=== PATIENT | male | born 1940 | race American Indian/Alaskan Native ===

== ENCOUNTER 2017-08-27 09:42 | Outpatient (CLI) | payer MEDICARE, OTHER ==
--- NOTE | 2017-08-27 12:29 | Cat Scan Report ---
FINAL REPORT EXAM: CT ANGIO CHEST HISTORY: CHEST PAIN COMPARISON: None. TECHNIQUE: Multiple contiguous axial images were obtained from the thoracic inlet to upper abdomen after administration of IV contrast. Reformatted sagittal and coronal images were available for review. FINDINGS: Medical devices: None. Thyroid: Normal. Lymph nodes: No significant mediastinal, hilar, or axillary lymphadenopathy. There is some residual thymic tissue anterior to the aorta. Vasculature: Normal caliber of the thoracic aorta without evidence of aneurysm or dissection. Normal variant branching pattern of the aortic arch with a common origin between the left common carotid artery and right brachiocephalic artery. The contrast bolus is suboptimal for evaluation of the pulmonary artery. There is no central pulmonary embolus. Heart: Normal heart size. Moderate coronary artery calcifications, most prominent in the left anterior descending artery. Other mediastinal structures: Normal. Lung parenchyma: Minimal dependent atelectasis at the lung bases. No suspicious nodule or mass. Airways: Patent. No bronchiectasis. Pleura: No pleural effusion or pneumothorax. Chest wall and spine: No suspicious osseous lesions. No acute fracture or dislocation. Upper Abdomen: Questionable filling defect versus most likely artifact from timing of the contrast bolus in the main portal vein. Simple appearing 2.5 centimeter cyst in the superior pole of the left kidney. Atrophic right kidney. Multiple nonobstructive renal calculi. Partially visualized 1 centimeter calculus in the right renal pelvis. IMPRESSION: 1. No evidence of thoracic aortic dissection or aneurysm. 2. Contrast bolus is suboptimal for evaluation of the pulmonary arteries, however there is no central pulmonary embolus. 3. Moderate coronary artery calcifications, most prominent in the left anterior descending artery. 4. Likely mixing artifact versus less likely thrombus in the main portal vein. Recommend further evaluation with ultrasound. 5. Atrophic right kidney and partially visualized calculus in the renal pelvis. 6. Additional nonobstructive renal calculi bilaterally. 7. Simple appearing cyst of the left kidney.
== END 2017-08-27 09:43 | disposition home or self-care (01) ==
LOC: CT 09:42
PROVIDERS: ATTEND Internal Medicine Cardiovascular Disease
DX: I25.10 Atherosclerotic heart disease of native coronary artery without angina pectoris (principal); N20.0 Calculus of kidney; N28.1 Cyst of kidney, acquired; J98.11 Atelectasis; N26.1 Atrophy of kidney (terminal); I10 Essential (primary) hypertension; Z87.891 Personal history of nicotine dependence
CPT/HCPCS: 36415; 71275; 82565; 84520; Q9966

== ENCOUNTER 2017-09-10 09:46 | Observation (INO) | payer MEDICARE, OTHER ==
[2017-09-10] MEDS ORDERED: NACL 0.9% 1 ML, VANCOMYCIN VIAL 1,000 MG IR ONE (10:35)
[2017-09-10] MEDS ORDERED: NACL 0.45% 1000 ML 1,000 ML IV SCH (11:00)
[2017-09-10 11:07] LABS: Basophils % (Auto) 0.7 % (0.0-1.8); Eosinophils # (Auto) 0.1 K/mm3 (0.0-0.4); Eosinophils % (Auto) 1.4 % (0.0-4.3); Hematocrit 42.2 % (35.5-45.6); Hemoglobin 14.4 gm/dl (11.8-15.2); Lymphocytes # (Auto) 1.2 K/mm3 (1.2-5.4); Lymphocytes % (Auto) 24.4 % (13.4-35.0); Mean Corpuscular HGB Conc 34 % (32-34); Mean Corpuscular Hemoglobin 30 pg (28-32); Mean Corpuscular Volume 87 fl (84-94); Monocytes # (Auto) 0.4 K/mm3 (0.0-0.8); Monocytes % (Auto) 7.8 % (0.0-7.3); Platelet Count 175 K/mm3 (140-440); Red Blood Count 4.87 M/mm3 (3.65-5.03); Red Cell Distribution Width 15.6 % (13.2-15.2)
[2017-09-10] MEDS ORDERED: NACL 0.9% 500 ML IR ONE (11:07)
[2017-09-10] MEDS ORDERED: ANCEF/STERILE WATER 2 GM/20 ML 0 GM/0 ML SYRINGE IV ONE (11:08)
[2017-09-10] MEDS ORDERED: MARCAINE 0.5% 60 ML INFILTRATI ONE (11:08)
[2017-09-10] MEDS ORDERED: XYLOCAINE 1% 20 mL ONE (11:08)
[2017-09-10] MEDS ORDERED: NACL 0.9% 500 ML 0 ML ONE (11:11)
[2017-09-10 11:15] LABS: INR 0.95 (0.87-1.13)
[2017-09-10 11:18] LABS: Calcium 9.6 mg/dL (8.4-10.2)
[2017-09-10] MEDS: VANCOMYCIN/NS 1 GM/250 ML 1 GM/250 ML BAG IV NR ×2 (11:18→12:10)
[2017-09-10] MEDS: VERSED IV ONE ×4 (12:06→12:47)
[2017-09-10] MEDS: SUBLIMAZE ONE ×3 (12:06→12:19)
[2017-09-10] MEDS ORDERED: NACL 0.9% 1000 ML 0 ML ONE (12:38)
[2017-09-10] MEDS ORDERED: VANCOMYCIN VIAL 1,000 MG in NACL 0.9% 1,000 ML IRRIGATION ONE (12:50)
[2017-09-10] MEDS ORDERED: NACL 0.9% 500 ML 500 ML ONE (12:58)
[2017-09-10] MEDS ORDERED: NORCO 5/325 ONE (14:09)
[2017-09-10] MEDS: NORCO 5/325 PO PRN (14:14)
--- NOTE | 2017-09-10 14:48 | XRay Report ---
AP CHEST: HISTORY: Pacemaker postop A 2-lead pacemaker device has been inserted since 08/15/17. There is no evidence for pneumothorax. The lungs are clear. Heart size is normal. No acute process is noted. IMPRESSION: Pacemaker placement. No pneumothorax.
[2017-09-11] MEDS: NORCO 5/325 PO PRN (00:09)
[2017-09-11] MEDS ORDERED: VANCOMYCIN/NS 1 GM/250 ML 1 GM/250 ML BAG IV SCH (00:30)
[2017-09-11 06:01] VITALS: BP 169/98
--- NOTE | 2017-09-11 11:53 | Short Stay Summary ---
Short Stay Documentation Date of service: 09/11/17 - History H&P: obtained from office - Allergies and Medications Current Medications: Allergies cefazolin sodium [From [facility]] Allergy (Verified 08/15/17 17:09) Itching Home Medications Medication Instructions Recorded Confirmed Last Taken Type Aspirin [Aspir-Low] 81 mg PO DAILY 08/15/17 09/10/17 09/09/17 History 10mg Terazosin HCl 10 mg PO QHS 08/15/17 09/10/17 09/09/17 History 10mg Active Medications Acetaminophen/Hydrocodone Bitart ([place] 5/325) 1 each PO Q6H PRN PRN Reason: Pain, Moderate (4-6) Last Admin: 09/11/17 00:09 Dose: 1 each Sodium Chloride (Nacl 0.45% 1000 Ml) 1,000 mls @ 50 mls/hr IV DIRECT YELENA Last Admin: 09/10/17 11:18 Dose: 50 mls/hr Pneumococcal Polyvalent Vaccine (Pneumovax 23) 0.5 ml IM .ONCE ONE Stop: 09/11/17 12:01 - Brief post op/procedure progress note Date of procedure: 09/10/17 Pre-op diagnosis: symptomatic bradycardia Post-op diagnosis: same Procedure: PPM implantation - see operative report Anesthesia: local Estimated blood loss: none Condition: stable - Disposition Condition at discharge: Stable Disposition: DC-[id number] TO HOME OR SELFCARE - Discharge Diagnoses (1) Symptomatic bradycardia Status: Chronic (2) Cardiac pacemaker in situ Status: Chronic (3) Junctional rhythm Status: Resolved (4) Hypertension Status: Chronic Short Stay Discharge Plan Activity: advance as tolerated Diet: low fat, low salt Wound: keep clean and dry, other (as per discharge instructions) Follow up with: GARDENIA VALDEZ MD [Primary Care Provider] - 7 Days ARMANI PORTILLO MD [Staff Physician] - 7 Days (09/23/2017 @ 1:30PM in our [place] office)
[2017-09-11] MEDS ORDERED: PNEUMOVAX 23 IM ONE (12:00)
== END 2017-09-11 15:28 | disposition home or self-care (01) ==
LOC: CATHLABREC 09:46 → 4A 11:23
PROVIDERS: ADMIT Internal Medicine Cardiovascular Disease; ATTEND Internal Medicine Cardiovascular Disease
DX: I49.5 Sick sinus syndrome (principal); R00.1 Bradycardia, unspecified; I10 Essential (primary) hypertension
CPT/HCPCS: 33208; 36415; 71045; 80048; 82962; 85025; 85610; 85730; 93005; 93010; 96365; 96366; 96375; C1779; C1785; C1892; G0378; J2250; J3010; J3370; J7040; 90732; J0690; J7030; Q9967

== ENCOUNTER 2017-09-21 21:19 | Inpatient (IN) | payer MEDICARE, OTHER ==
[2017-09-21] MEDS ORDERED: NACL 0.9% 500 ML 500 ML IV ONE (21:54)
[2017-09-21 22:22] LABS: Hematocrit 40.1 % (35.5-45.6); Hemoglobin 13.3 gm/dl (11.8-15.2); Mean Corpuscular HGB Conc 33 % (32-34); Mean Corpuscular Hemoglobin 29 pg (28-32); Mean Corpuscular Volume 87 fl (84-94); Platelet Count 176 K/mm3 (140-440); Red Blood Count 4.63 M/mm3 (3.65-5.03); Red Cell Distribution Width 15.2 % (13.2-15.2)
[2017-09-21 22:33] LABS: INR 1.1 (0.87-1.13)
--- NOTE | 2017-09-21 22:40 | XRay Report ---
FINAL REPORT EXAM: XR CHEST 1V AP HISTORY: possible Sepsis COMPARISON: August 2017. FINDINGS: Frontal view(s) of the chest obtained. Cardiac silhouette within normal limits. No gross consolidation or effusion. No pneumothorax. Left-sided cardiac pacer is in place. IMPRESSION: No grossly acute findings.
[2017-09-21 22:46] LABS: Albumin 3.7 g/dL (3.9-5)
[2017-09-21] MEDS ORDERED: TYLENOL ONE (22:49)
[2017-09-21] MEDS ORDERED: TYLENOL PO ONE (22:55)
--- NOTE | 2017-09-21 23:34 | Emergency Department Report ---
HPI - General Chief Complaint: Weakness Time Seen by Provider: 09/21/17 22:49 - HPI HPI: Room 1 The patient is a 76-year-old male presenting with a chief complaint of fever and weakness. The patient states she had a renal stent removed 09/17/[address]. Albarran. The patient states the following evening he feels as though he had a subjective fever. 09/19 he states he began to feel weakness and off balance. The patient states he started developing bilateral testicular pain with the left greater than the right. The patient also states he developed dysuria at that time. 09/20 the patient reported a temperature of 101.3F. Today the patient stated his weakness worsened. The patient states after he went to the bathroom he felt so weak he had difficulty getting back to his bedroom. The patient finally made to his bed and his found him hanging off the side of the secondary to his profound weakness. At this time EMS was called. In the ED the patient received IV fluids and states he feels much improved the patient admitted to some nausea earlier but denies vomiting. The patient states she had lower abdominal pain which began 09/19 as well Location: [See above] Duration: [See above] Quality: Weakness, pain Severity: Moderate Modifying factors: [see above] Context: [see above] Mode of transportation: [not driving] ED Past Medical Hx - Past Medical History Previous Medical History?: Yes Hx Hypertension: Yes Hx Diabetes: Yes Additional medical history: Pacemaker, Kidney stones, Recently had stent in Kidney removed - Surgical History Past Surgical History?: Yes Additional Surgical History: Renal stents, lithotripsy, Pacemaker - Family History Family history: no significant - Social History Smoking Status: Former Smoker (none 45 years) Substance Use Type: None (denies illicit drug use) - Medications Home Medications: Home Medications Medication Instructions Recorded Confirmed Last Taken Type Aspirin [Aspir-Low] 81 mg PO DAILY 08/15/17 09/21/17 09/09/17 History 10mg Benazepril (Nf) 20 mg PO DAILY 09/21/17 09/21/17 Unknown History Ciprofloxacin HCl [Cipro] 500 mg PO BID 09/21/17 09/21/17 Unknown History Ibuprofen 200 mg PO Q6H PRN 09/21/17 09/21/17 Unknown History Nebivolol HCl [Bystolic] 10 mg PO DAILY 09/21/17 09/21/17 Unknown History Oxycodone HCl/Acetaminophen 1 each PO Q4H PRN 09/21/17 09/21/17 Unknown History [Percocet 7.5/325 mg] Tamsulosin [Flomax] 0.4 mg PO QDAY 09/21/17 09/21/17 Unknown History ED Review of Systems ROS: Stated complaint: GENERAL WEAKNESS,FEVER Other details as noted in HPI Constitutional: fever, weakness Gastrointestinal: abdominal pain, nausea. denies: vomiting Genitourinary: dysuria Musculoskeletal: back pain Physical Exam - Physical Exam Vital Signs: Vital Signs 09/21/17 09/21/17 09/21/17 21:36 22:38 22:56 Temperature 102.4 F H Pulse Rate 84 Respiratory 20 20 20 Rate Blood Pressure 153/76 O2 Sat by Pulse 98 98 Oximetry Physical Exam: GENERAL: The patient is well-developed well-nourished male lying on stretcher not appearing to be in acute distress. [] HEENT: Normocephalic. Atraumatic. Extraocular motions are intact. Patient has moist mucous membranes. NECK: Supple. Trachea midline CHEST/LUNGS: Clear to auscultation. There is no respiratory distress noted. HEART/CARDIOVASCULAR: Regular. There is no tachycardia. There is no gallop rub or murmur. ABDOMEN: Abdomen is soft, with tenderness to palpation in the suprapubic and left lower quadrant. Patient has normal bowel sounds. There is no abdominal distention. SKIN: There is no rash. There is no edema. There is no diaphoresis. NEURO: The patient is awake, alert, and oriented. The patient is cooperative. The patient has normal speech MUSCULOSKELETAL: There is no CVA tenderness. There is no evidence of acute injury. GENITOURINARY: Both testicles are tender to palpation. No appreciable edema ED Course Vital Signs 09/21/17 09/21/17 09/21/17 21:36 22:38 22:56 Temperature 102.4 F H Pulse Rate 84 Respiratory 20 20 20 Rate Blood Pressure 153/76 O2 Sat by Pulse 98 98 Oximetry ED Medical Decision Making - Lab Data Result diagrams: 09/21/17 22:03 09/21/17 22:03 Laboratory Tests 09/21/17 09/21/17 09/21/17 22:03 22:03 22:03 WBC 15.0 H RBC 4.63 Hgb 13.3 Hct 40.1 MCV 87 MCH 29 MCHC 33 RDW 15.2 Plt Count 176 Add Manual Diff Complete Total Counted 100 Seg Neutrophils % Bobbin Winder Seg Neuts % (Manual) 90.0 H Band Neutrophils % 5.0 Lymphocytes % (Manual) 3.0 L Reactive Lymphs % (Man) 0 Monocytes % (Manual) 2.0 Eosinophils % (Manual) 0 Basophils % (Manual) 0 Metamyelocytes % 0 Myelocytes % 0 Promyelocytes % 0 Blast Cells % 0 Nucleated RBC % Not Reportable Seg Neutrophils # Man 13.5 H Band Neutrophils # 0.8 Lymphocytes # (Manual) 0.5 L Abs React Lymphs (Man) 0.0 Monocytes # (Manual) 0.3 Eosinophils # (Manual) 0.0 Basophils # (Manual) 0.0 Metamyelocytes # 0.0 Myelocytes # 0.0 Promyelocytes # 0.0 Blast Cells # 0.0 WBC Morphology Not Reportable Hypersegmented Neuts Not Reportable Hyposegmented Neuts Not Reportable Hypogranular Neuts Not Reportable Smudge Cells Not Reportable Toxic Granulation Not Reportable Toxic Vacuolation Not Reportable Dohle Bodies Not Reportable Pelger-Huet Anomaly Not Reportable Michelle Rods Not Reportable Platelet Estimate Consistent w auto Clumped Platelets Not Reportable Plt Clumps, EDTA Not Reportable Large Platelets Not Reportable Giant Platelets Not Reportable Platelet Satelliting Not Reportable Plt Morphology Comment Not Reportable RBC Morphology Normal Dimorphic RBCs Not Reportable Polychromasia Not Reportable Hypochromasia Not Reportable Poikilocytosis Not Reportable Anisocytosis Not Reportable Microcytosis Not Reportable Macrocytosis Not Reportable Spherocytes Not Reportable Pappenheimer Bodies Not Reportable Sickle Cells Not Reportable Target Cells Not Reportable Tear Drop Cells Not Reportable Ovalocytes Not Reportable Helmet Cells Not Reportable [place] Bodies Not Reportable Cando Rings Not Reportable [place] Cells Not Reportable Bite Cells Not Reportable Crenated Cell Not Reportable Elliptocytes Not Reportable Acanthocytes (Spur) Not Reportable Rouleaux Not Reportable Hemoglobin C Crystals Not Reportable Schistocytes Not Reportable Malaria parasites Not Reportable Meng Bodies Not Reportable Hem Pathologist Commnt No PT 14.8 INR 1.10 VBG pH Sodium 135 L Potassium 4.1 Chloride 98.3 Carbon Dioxide 19 L Anion Gap 22 BUN 22 H Creatinine 2.0 H Estimated GFR 40 BUN/Creatinine Ratio 11 Glucose 155 H Lactic Acid Calcium 9.0 Total Bilirubin 0.70 AST 20 ALT 12 Alkaline Phosphatase 59 Total Protein 7.3 Albumin 3.7 L Albumin/Globulin Ratio 1.0 Urine Color Urine Turbidity Urine pH Ur Specific [place] Urine Protein Urine Glucose (UA) Urine Ketones Urine Blood Urine Nitrite Urine Bilirubin Urine Urobilinogen Ur Leukocyte Esterase Urine WBC (Auto) Urine RBC (Auto) 09/21/17 09/21/17 09/21/17 22:03 22:03 23:33 WBC RBC Hgb Hct MCV MCH MCHC RDW Plt Count Add Manual Diff Total Counted Seg Neutrophils % Seg Neuts % (Manual) Band Neutrophils % Lymphocytes % (Manual) Reactive Lymphs % (Man) Monocytes % (Manual) Eosinophils % (Manual) Basophils % (Manual) Metamyelocytes % Myelocytes % Promyelocytes % Blast Cells % Nucleated RBC % Seg Neutrophils # Man Band Neutrophils # Lymphocytes # (Manual) Abs React Lymphs (Man) Monocytes # (Manual) Eosinophils # (Manual) Basophils # (Manual) Metamyelocytes # Myelocytes # Promyelocytes # Blast Cells # WBC Morphology Hypersegmented Neuts Hyposegmented Neuts Hypogranular Neuts Smudge Cells Toxic Granulation Toxic Vacuolation Dohle Bodies Pelger-Huet Anomaly Michelle Rods Platelet Estimate Clumped Platelets Plt Clumps, EDTA Large Platelets Giant Platelets Platelet Satelliting Plt Morphology Comment RBC Morphology Dimorphic RBCs Polychromasia Hypochromasia Poikilocytosis Anisocytosis Microcytosis Macrocytosis Spherocytes Pappenheimer Bodies Sickle Cells Target Cells Tear Drop Cells Ovalocytes Helmet Cells [place] Bodies Cando Rings Armaan Cells Bite Cells Crenated Cell Elliptocytes Acanthocytes (Spur) Rouleaux Hemoglobin C Crystals Schistocytes Malaria parasites Meng Bodies Hem Pathologist Commnt PT INR VBG pH 7.377 Sodium Potassium Chloride Carbon Dioxide Anion Gap BUN Creatinine Estimated GFR BUN/Creatinine Ratio Glucose Lactic Acid 1.10 Calcium Total Bilirubin AST ALT Alkaline Phosphatase Total Protein Albumin Albumin/Globulin Ratio Urine Color Yellow Urine Turbidity Clear Urine pH 6.0 Ur Specific [place] 1.012 Urine Protein 30 mg/dl Urine Glucose (UA) 50 Urine Ketones Tr Urine Blood Sm Urine Nitrite Neg Urine Bilirubin Neg Urine Urobilinogen < 2.0 Ur Leukocyte Esterase Sm Urine WBC (Auto) 15.0 H Urine RBC (Auto) 3.0 - EKG Data -: EKG Interpreted by Me EKG shows normal: sinus rhythm Rate: normal - EKG Data When compared to previous EKG there are: previous EKG unavailable Interpretation: other (no ischemic changes seen) - Radiology Data Radiology results: report reviewed (testicular ultrasound, CT abdomen and pelvis , chest x-ray), image reviewed (testicular ultrasound, CT abdomen and pelvis, chest x-ray) interpreted by me: Chest x-ray- no focal infiltrate, no pneumothorax [address] [address] Ultrasound Report Signed Patient: DIONNE GARCIA MR#: [id number] : 1940 Acct:[id number] Age/Sex: 76 / M ADM Date: 09/21/17 Loc: ED Attending Dr: Ordering Physician: ILA JEFF MD Date of Service: 09/21/17 Procedure(s): US testicular doppler comp Accession Number(s): [id number] cc: ILA JEFF MD FINAL REPORT EXAM: US TESTICULAR DOPPLER COMP HISTORY: bilateral testicle pain, left greater than right COMPARISON: None available. TECHNIQUE: Several real-time grayscale and color Doppler images were obtained. FINDINGS: The right testicle measures 4.3 x 2.2 x 3.1 centimeters. Left testicle measures 4.5 x 1.7 x 2.5 centimeters. There is vascular flow to the bilateral testicles. Both the left and right epididymis are heterogeneous in echogenicity with increased vascularity concerning for bilateral epididymitis. No large hydrocele or varicocele demonstrated. IMPRESSION: Findings concerning for bilateral epididymitis. Transcribed By: LMA Dictated By: PHI LIEBERMAN MD Electronically Authenticated By: PHI LIEBERMAN MD Signed Date/Time: 09/22/175 DD/ TD/TT: 09/22/[address] [address] Cat Scan Report Signed Patient: DIONNE GARCIA MR#: [id number] : 1940 Acct:[id number] Age/Sex: 76 / M ADM Date: 09/21/17 Loc: ED Attending Dr: Ordering Physician: ILA JEFF MD Date of Service: 09/21/17 Procedure(s): CT abdomen pelvis wo con Accession Number(s): [id number] cc: ILA JEFF MD FINAL REPORT EXAM: CT ABDOMEN PELVIS WO CON HISTORY: suprapubic LLQ Abd pain, fever COMPARISON: None available. TECHNIQUE: Contiguous axial images were obtained. Additional sagittal and coronal reformatted images were obtained. FINDINGS: Mild linear atelectasis and scarring at the lung bases. Visualized heart is upper limits normal in size. No calcified gallstones. Hypodense lesion within left hepatic lobe measuring 5-6 millimeters. This is too small to accurately characterize but may reflect a tiny cyst. Otherwise, liver, spleen, pancreas are grossly unremarkable. Nodular thickening of the adrenal glands. Multiple bilateral nonobstructive renal calculi. Chronic appearing atrophy of the right kidney compared to the left. Right kidney measures 8.1 centimeters in length. The left kidney measures 11.5 centimeters in length. Benign bilateral renal cysts. Aorta and IVC normal in caliber. Mild to moderate calcified plaque along the aorta. At the posterior right margin the urinary bladder is a 3 x 3 millimeter calculus. This is separate from the UVJ. No associated dilatation right ureter to suggest recent passage of calculus. Moderate enlargement of prostate gland measuring 5.3 x 5.4 centimeters in axial dimension and 5.3 centimeters in craniocaudal dimension. Mild haziness of the fat surrounding the prostate gland. The appendix is normal in caliber. Diverticulosis of the colon. No diverticulitis. Moderate severe degenerative changes of the lower lumbar spine. Visualized bony pelvis is grossly intact. IMPRESSION: Moderate enlargement of the prostate gland. There is mild haziness of the fat surrounding the prostate gland which may be on a chronic basis. Mild prostatitis is not excluded. Correlation with PSA suggested. Multiple bilateral nonobstructive renal calculi. Chronic appearing atrophy of the right kidney. There is a 3 millimeter calculus within the urinary bladder. No evidence of recent passage of stone. No abnormal dilatation or fat stranding along the course of the bilateral ureters. No other acute findings. Transcribed By: LMA Dictated By: PHI LIEBERMAN MD Electronically Authenticated By: PHI LIEBERMAN MD Signed Date/Time: 09/22/1731 DD/ TD/TT: 09/22/1731 - Differential Diagnosis epididymitis, UTI, pyelonephritis, renal colic, diverticulitis Critical care attestation.: If time is entered above; I have spent that time in minutes in the direct care of this critically ill patient, excluding procedure time. ED Disposition Clinical Impression: Bilateral epididymitis, Acute renal insufficiency, Dehydration, Fever, UTI ( urinary tract infection) Disposition: OP ADMIT IP TO THIS HOSP Is pt being admited?: Yes Does the pt Need Aspirin: No (renal insufficiency) Condition: Fair Instructions: Epididymitis (ED) Referrals: PRIMARY CARE, [Primary Care Provider] - 3-5 Days Forms: STI Treatment and Prevention Time of Disposition: 00:45 (hospitalist notified (Dr. Romo))
[2017-09-21 23:57] LABS: Bilirubin,Urine NEG (Negative); Blood,Urine SM (Negative); Color,Urine Yellow (Yellow); Urobilinogen,Urine < 2.0 mg/dL (<2.0)
[2017-09-22] MEDS ORDERED: LEVAQUIN 250MG/50ML 250 MG/50 ML BAG IV ONE
[2017-09-22 00:06] LABS: Band Neutrophils # (Manual) 0.8 K/mm3; Basophils % (Manual) 0 % (0.0-1.8); Eosinophils % (Manual) 0 % (0.0-4.3); Total Cells Counted 100
[2017-09-22 00:07] LABS: Platelet Estimate Consistent w Auto; RBC Morphology Normal
--- NOTE | 2017-09-22 00:10 | Ultrasound Report ---
FINAL REPORT EXAM: US TESTICULAR DOPPLER COMP HISTORY: bilateral testicle pain, left greater than right COMPARISON: None available. TECHNIQUE: Several real-time grayscale and color Doppler images were obtained. FINDINGS: The right testicle measures 4.3 x 2.2 x 3.1 centimeters. Left testicle measures 4.5 x 1.7 x 2.5 centimeters. There is vascular flow to the bilateral testicles. Both the left and right epididymis are heterogeneous in echogenicity with increased vascularity concerning for bilateral epididymitis. No large hydrocele or varicocele demonstrated. IMPRESSION: Findings concerning for bilateral epididymitis.
[2017-09-22] MEDS ORDERED: NACL 0.9% 1000 ML 1,000 ML IV ONE (00:21)
--- NOTE | 2017-09-22 00:36 | Cat Scan Report ---
FINAL REPORT EXAM: CT ABDOMEN PELVIS WO CON HISTORY: suprapubic LLQ Abd pain, fever COMPARISON: None available. TECHNIQUE: Contiguous axial images were obtained. Additional sagittal and coronal reformatted images were obtained. FINDINGS: Mild linear atelectasis and scarring at the lung bases. Visualized heart is upper limits normal in size. No calcified gallstones. Hypodense lesion within left hepatic lobe measuring 5-6 millimeters. This is too small to accurately characterize but may reflect a tiny cyst. Otherwise, liver, spleen, pancreas are grossly unremarkable. Nodular thickening of the adrenal glands. Multiple bilateral nonobstructive renal calculi. Chronic appearing atrophy of the right kidney compared to the left. Right kidney measures 8.1 centimeters in length. The left kidney measures 11.5 centimeters in length. Benign bilateral renal cysts. Aorta and IVC normal in caliber. Mild to moderate calcified plaque along the aorta. At the posterior right margin the urinary bladder is a 3 x 3 millimeter calculus. This is separate from the UVJ. No associated dilatation right ureter to suggest recent passage of calculus. Moderate enlargement of prostate gland measuring 5.3 x 5.4 centimeters in axial dimension and 5.3 centimeters in craniocaudal dimension. Mild haziness of the fat surrounding the prostate gland. The appendix is normal in caliber. Diverticulosis of the colon. No diverticulitis. Moderate severe degenerative changes of the lower lumbar spine. Visualized bony pelvis is grossly intact. IMPRESSION: Moderate enlargement of the prostate gland. There is mild haziness of the fat surrounding the prostate gland which may be on a chronic basis. Mild prostatitis is not excluded. Correlation with PSA suggested. Multiple bilateral nonobstructive renal calculi. Chronic appearing atrophy of the right kidney. There is a 3 millimeter calculus within the urinary bladder. No evidence of recent passage of stone. No abnormal dilatation or fat stranding along the course of the bilateral ureters. No other acute findings.
[2017-09-22] MEDS: ZOSYN/NS 3.375GM/50ML 3.375 GM/50 ML BAG IV SCH ×5 (01:00→23:13)
[2017-09-22] MEDS ORDERED: PERCOCET 5/325 PO PRN (03:53)
--- NOTE | 2017-09-22 03:53 | Event Note ---
Date: 09/22/17 See dictated H/p in reports Epidydimitis
[2017-09-22] MEDS ORDERED: MORPHINE IV PRN (03:55)
[2017-09-22] MEDS ORDERED: AMBIEN PO PRN (03:55)
[2017-09-22] MEDS ORDERED: SODIUM CHLORIDE FLUSH SYRINGE 10 ML IV PRN ×2 (03:55→04:26)
[2017-09-22] MEDS ORDERED: ZOFRAN IV PRN ×2 (03:55→04:26)
[2017-09-22] MEDS ORDERED: TYLENOL PO PRN (03:55)
[2017-09-22] MEDS ORDERED: NACL 0.9% 1000 ML 1,000 ML IV SCH (04:00)
[2017-09-22] MEDS ORDERED: ROXICODONE PO PRN (04:11)
--- NOTE | 2017-09-22 06:55 | History and Physical Report ---
History of Present Illness Date of examination: 09/22/17 Date of admission: 09/22/17 03:55 Chief complaint: Chief complaint: Fever chills for 1 day History of present illness: TELIDA: This 76-year-old -[place]ir[place] male comes in for fever and weakness. Patient had a recent renal stent removed on 09/18/2079 by his urologist is Dr. Albarran. Patient has been having swelling of both scrotal region and fever of 101.3. Patient attributes it to remove the stent. As profound weakness. Has chills. No fever no cough Past Medical History Previous Medical History?: Yes Hx Hypertension: Yes Hx Diabetes: Yes Additional medical history: Pacemaker, Kidney stones, Recently had stent in Kidney removed - Surgical History Past Surgical History?: Yes Additional Surgical History: Renal stents, lithotripsy, Pacemaker - Family History Family history: no significant - Social History Smoking Status: Former Smoker (none 45 years) Substance Use Type: None (denies illicit drug use) - Medications Home Medications: Home Medications Medication Instructions Recorded Confirmed Last Taken Type Aspirin [Aspir-Low] 81 mg PO DAILY 08/15/17 09/21/17 09/09/17 History 10mg Benazepril (Nf) 20 mg PO DAILY 09/21/17 09/21/17 Unknown History Ciprofloxacin HCl [Cipro] 500 mg PO BID 09/21/17 09/21/17 Unknown History Ibuprofen 200 mg PO Q6H PRN 09/21/17 09/21/17 Unknown History Nebivolol HCl [Bystolic] 10 mg PO DAILY 09/21/17 09/21/17 Unknown History Oxycodone HCl/Acetaminophen 1 each PO Q4H PRN 09/21/17 09/21/17 Unknown History [Percocet 7.5/325 mg] Tamsulosin [Flomax] 0.4 mg PO QDAY 09/21/17 09/21/17 Unknown History Review of Systems ROS: Stated complaint: GENERAL WEAKNESS,FEVER Other details as noted in HPI Constitutional: fever, weakness Gastrointestinal: abdominal pain, nausea. denies: vomiting Genitourinary: dysuria Musculoskeletal: back pain 14 point review of systems: Otherwise negative Medications and Allergies Allergies Allergy/AdvReac Type Severity Reaction Status Date / Time cefazolin sodium [From [facility]] Allergy Itching Verified 08/15/17 17:09 Home Medications Medication Instructions Recorded Confirmed Last Taken Type Aspirin [Aspir-Low] 81 mg PO DAILY 08/15/17 09/21/17 09/09/17 History 10mg Benazepril (Nf) 20 mg PO DAILY 09/21/17 09/21/17 Unknown History Ciprofloxacin HCl [Cipro] 500 mg PO BID 09/21/17 09/21/17 Unknown History Ibuprofen 200 mg PO Q6H PRN 09/21/17 09/21/17 Unknown History Nebivolol HCl [Bystolic] 10 mg PO DAILY 09/21/17 09/21/17 Unknown History Oxycodone HCl/Acetaminophen 1 each PO Q4H PRN 09/21/17 09/21/17 Unknown History [Percocet 7.5/325 mg] Tamsulosin [Flomax] 0.4 mg PO QDAY 09/21/17 09/21/17 Unknown History Active Meds: Active Medications Acetaminophen (Tylenol) 650 mg PO Q4H PRN PRN Reason: Pain MILD(1-3)/Fever >100.5/PABLO Aspirin (Halfprin Ec) 81 mg PO DAILY [facility] Piperacillin Sod/Tazobactam Sod (Zosyn/Ns 3.375gm/50ml) 3.375 gm in 50 mls @ 100 mls/hr IV Q6HR [facility] Last Admin: 09/22/17 06:17 Dose: 100 mls/hr Sodium Chloride (Nacl 0.9% 1000 Ml) 1,000 mls @ 75 mls/hr IV DIRECT [facility] Lisinopril (Zestril) 20 mg PO QDAY [facility] Metoprolol Succinate (Toprol Xl) 100 mg PO QDAY [facility] Morphine Sulfate (Morphine) 2 mg IV Q4H PRN PRN Reason: Pain, Moderate (4-6) Ondansetron HCl (Zofran) 4 mg IV Q8H PRN PRN Reason: Nausea And Vomiting Oxycodone HCl (Roxicodone) 2.5 mg PO Q4H PRN PRN Reason: Pain, Moderate (4-6) Oxycodone/Acetaminophen (Percocet 5/325) 1 tab PO Q4H PRN PRN Reason: Pain, Moderate (4-6) Sodium Chloride (Sodium Chloride Flush Syringe 10 Ml) 10 ml IV PRN PRN PRN Reason: LINE FLUSH Sodium Chloride (Sodium Chloride Flush Syringe 10 Ml) 10 ml IV BID [facility] Tamsulosin HCl (Flomax) 0.4 mg PO QDAY [facility] Zolpidem Tartrate (Ambien) 5 mg PO QHS PRN PRN Reason: Insomnia Exam - Constitutional Vitals: Temp Pulse Resp BP Pulse Ox 98.2 F 72 20 158/76 99 09/22/17 05:45 09/22/17 05:55 09/22/17 04:30 09/22/17 05:55 09/22/17 05:55 General appearance: Present: no acute distress, well-nourished - EENT Eyes: Present: PERRL ENT: hearing intact, clear oral mucosa - Neck Neck: Present: supple, normal ROM - Respiratory Respiratory effort: normal Respiratory: bilateral: CTA - Cardiovascular Heart rate: 80 Rhythm: regular Heart Sounds: Present: S1 & S2. Absent: rub, click - Extremities Extremities: no ischemia, pulses intact, pulses symmetrical, No edema Peripheral Pulses: within normal limits - Abdominal General gastrointestinal: Present: soft, non-tender, non-distended, normal bowel sounds Male genitourinary: Present: normal, scrotal edema (scrotal swelling and tenderness present. Erythema present.) - Rectal Rectal Exam: deferred - Integumentary Integumentary: Present: clear, warm, dry - Musculoskeletal Musculoskeletal: gait normal, strength equal bilaterally - Psychiatric Psychiatric: appropriate mood/affect, intact judgment & insight - Neurologic Neurologic: CNII-XII intact, moves all extremities - Allied Health Allied health notes reviewed: nursing, case management Results - Labs CBC & Chem 7: 09/21/17 22:03 09/21/17 22:03 Labs: Laboratory Last Values WBC 15.0 K/mm3 (4.5-11.0) H 09/21/17 22:03 RBC 4.63 M/mm3 (3.65-5.03) 09/21/17 22:03 Hgb 13.3 gm/dl (11.8-15.2) 09/21/17 22:03 Hct 40.1 % (35.5-45.6) 09/21/17 22:03 MCV 87 fl (84-94) 09/21/17 22:03 MCH 29 pg (28-32) 09/21/17 22:03 MCHC 33 % (32-34) 09/21/17 22:03 RDW 15.2 % (13.2-15.2) 09/21/17 22:03 Plt Count 176 K/mm3 (140-440) 09/21/17 22:03 Add Manual Diff Complete 09/21/17 22:03 Total Counted 100 09/21/17 22:03 Seg Neutrophils % [employer] 09/21/17 22:03 Seg Neuts % (Manual) 90.0 % (40.0-70.0) H 09/21/17 22:03 Band Neutrophils % 5.0 % 09/21/17 22:03 Lymphocytes % (Manual) 3.0 % (13.4-35.0) L 09/21/17 22:03 Reactive Lymphs % (Man) 0 % 09/21/17 22:03 Monocytes % (Manual) 2.0 % (0.0-7.3) 09/21/17 22:03 Eosinophils % (Manual) 0 % (0.0-4.3) 09/21/17 22:03 Basophils % (Manual) 0 % (0.0-1.8) 09/21/17 22:03 Metamyelocytes % 0 % 09/21/17 22:03 Myelocytes % 0 % 09/21/17 22:03 Promyelocytes % 0 % 09/21/17 22:03 Blast Cells % 0 % 09/21/17 22:03 Nucleated RBC % Not Reportable 09/21/17 22:03 Seg Neutrophils # Man 13.5 K/mm3 (1.8-7.7) H 09/21/17 22:03 Band Neutrophils # 0.8 K/mm3 09/21/17 22:03 Lymphocytes # (Manual) 0.5 K/mm3 (1.2-5.4) L 09/21/17 22:03 Abs React Lymphs (Man) 0.0 K/mm3 09/21/17 22:03 Monocytes # (Manual) 0.3 K/mm3 (0.0-0.8) 09/21/17 22:03 Eosinophils # (Manual) 0.0 K/mm3 (0.0-0.4) 09/21/17 22:03 Basophils # (Manual) 0.0 K/mm3 (0.0-0.1) 09/21/17 22:03 Metamyelocytes # 0.0 K/mm3 09/21/17 22:03 Myelocytes # 0.0 K/mm3 09/21/17 22:03 Promyelocytes # 0.0 K/mm3 09/21/17 22:03 Blast Cells # 0.0 K/mm3 09/21/17 22:03 WBC Morphology Not Reportable 09/21/17 22:03 Hypersegmented Neuts Not Reportable 09/21/17 22:03 Hyposegmented Neuts Not Reportable 09/21/17 22:03 Hypogranular Neuts Not Reportable 09/21/17 22:03 Smudge Cells Not Reportable 09/21/17 22:03 Toxic Granulation Not Reportable 09/21/17 22:03 Toxic Vacuolation Not Reportable 09/21/17 22:03 Dohle Bodies Not Reportable 09/21/17 22:03 Pelger-Huet Anomaly Not Reportable 09/21/17 22:03 Michelle Rods Not Reportable 09/21/17 22:03 Platelet Estimate Consistent w auto 09/21/17 22:03 Clumped Platelets Not Reportable 09/21/17 22:03 Plt Clumps, EDTA Not Reportable 09/21/17 22:03 Large Platelets Not Reportable 09/21/17 22:03 Giant Platelets Not Reportable 09/21/17 22:03 Platelet Satelliting Not Reportable 09/21/17 22:03 Plt Morphology Comment Not Reportable 09/21/17 22:03 RBC Morphology Normal 09/21/17 22:03 Dimorphic RBCs Not Reportable 09/21/17 22:03 Polychromasia Not Reportable 09/21/17 22:03 Hypochromasia Not Reportable 09/21/17 22:03 Poikilocytosis Not Reportable 09/21/17 22:03 Anisocytosis Not Reportable 09/21/17 22:03 Microcytosis Not Reportable 09/21/17 22:03 Macrocytosis Not Reportable 09/21/17 22:03 Spherocytes Not Reportable 09/21/17 22:03 Pappenheimer Bodies Not Reportable 09/21/17 22:03 Sickle Cells Not Reportable 09/21/17 22:03 Target Cells Not Reportable 09/21/17 22:03 Tear Drop Cells Not Reportable 09/21/17 22:03 Ovalocytes Not Reportable 09/21/17 22:03 Helmet Cells Not Reportable 09/21/17 22:03 [place] Bodies Not Reportable 09/21/17 22:03 [place] Rings Not Reportable 09/21/17 22:03 [place] Cells Not Reportable 09/21/17 22:03 Bite Cells Not Reportable 09/21/17 22:03 Crenated Cell Not Reportable 09/21/17 22:03 Elliptocytes Not Reportable 09/21/17 22:03 Acanthocytes (Spur) Not Reportable 09/21/17 22:03 Rouleaux Not Reportable 09/21/17 22:03 Hemoglobin C Crystals Not Reportable 09/21/17 22:03 Schistocytes Not Reportable 09/21/17 22:03 Malaria parasites Not Reportable 09/21/17 22:03 Meng Bodies Not Reportable 09/21/17 22:03 Hem Pathologist Commnt No 09/21/17 22:03 PT 14.8 Sec. (12.2-14.9) 09/21/17 22:03 INR 1.10 (0.87-1.13) 09/21/17 22:03 VBG pH 7.377 (7.320-7.420) 09/21/17 22:03 Sodium 135 mmol/L (137-145) L 09/21/17 22:03 Potassium 4.1 mmol/L (3.6-5.0) 09/21/17 22:03 Chloride 98.3 mmol/L (98-107) 09/21/17 22:03 Carbon Dioxide 19 mmol/L (22-30) L 09/21/17 22:03 Anion Gap 22 mmol/L 09/21/17 22:03 BUN 22 mg/dL (9-20) H 09/21/17 22:03 Creatinine 2.0 mg/dL (0.8-1.5) H 09/21/17 22:03 Estimated GFR 40 ml/min 09/21/17 22:03 BUN/Creatinine Ratio 11 % 09/21/17 22:03 Glucose 155 mg/dL (75-100) H 09/21/17 22:03 Hemoglobin A1c 5.7 % (4-6) 09/22/17 03:56 Lactic Acid 0.80 mmol/L (0.7-2.0) 09/22/17 01:22 Calcium 9.0 mg/dL (8.4-10.2) 09/21/17 22:03 Total Bilirubin 0.70 mg/dL (0.1-1.2) 09/21/17 22:03 AST 20 units/L (5-40) 09/21/17 22:03 ALT 12 units/L (7-56) 09/21/17 22:03 Alkaline Phosphatase 59 units/L (35-129) 09/21/17 22:03 Total Protein 7.3 g/dL (6.3-8.2) 09/21/17 22:03 Albumin 3.7 g/dL (3.9-5) L 09/21/17 22:03 Albumin/Globulin Ratio 1.0 % 09/21/17 22:03 Urine Color Yellow (Yellow) 09/21/17 23:33 Urine Turbidity Clear (Clear) 09/21/17 23:33 Urine pH 6.0 (5.0-7.0) 09/21/17 23:33 Ur Specific [place] 1.012 (1.003-1.030) 09/21/17 23:33 Urine Protein 30 mg/dl mg/dL (Negative) 09/21/17 23:33 Urine Glucose (UA) 50 mg/dL (Negative) 09/21/17 23:33 Urine Ketones Tr mg/dL (Negative) 09/21/17 23:33 Urine Blood Sm (Negative) 09/21/17 23:33 Urine Nitrite Neg (Negative) 09/21/17 23:33 Urine Bilirubin Neg (Negative) 09/21/17 23:33 Urine Urobilinogen < 2.0 mg/dL (<2.0) 09/21/17 23:33 Ur Leukocyte Esterase Sm (Negative) 09/21/17 23:33 Urine WBC (Auto) 15.0 /HPF (0.0-6.0) H 09/21/17 23:33 Urine RBC (Auto) 3.0 /HPF (0.0-6.0) 09/21/17 23:33 - Imaging and Cardiology Imaging and Cardiology: Abdominal CAT scan IMPRESSION: Moderate enlargement of the prostate gland. There is mild haziness of the fat surrounding the prostate gland which may be on a chronic basis. Mild prostatitis is not excluded. Correlation with PSA suggested. Multiple bilateral nonobstructive renal calculi. Chronic appearing atrophy of the right kidney. There is a 3 millimeter calculus within the urinary bladder. No evidence of recent passage of stone. No abnormal dilatation or fat stranding along the course of the bilateral ureters. No other acute findings. Testicular ultrasound. FINDINGS: The right testicle measures 4.3 x 2.2 x 3.1 centimeters. Left testicle measures 4.5 x 1.7 x 2.5 centimeters. There is vascular flow to the bilateral testicles. Both the left and right epididymis are heterogeneous in echogenicity with increased vascularity concerning for bilateral epididymitis. No large hydrocele or varicocele demonstrated. IMPRESSION: Findings concerning for bilateral epididymitis. Assessment and Plan Advance Directives: Yes (Full code) VTE prophylaxis?: Chemical Plan of care discussed with patient/family: Yes - Patient Problems (1) Bilateral epididymitis Current Visit: Yes Status: Acute Plan to address problem: Patient initiated on IV Zosyn Urology consult requested (2) UTI (urinary tract infection) Current Visit: Yes Status: Acute Qualifiers: Urinary tract infection type: acute cystitis Plan to address problem: On zosyn (3) Hypertension Current Visit: No Status: Chronic Qualifiers: Hypertension type: essential hypertension Qualified Code(s): I10 - Essential (primary) hypertension Plan to address problem: Cont antihypertensives (4) BPH (benign prostatic hyperplasia) Current Visit: Yes Status: Chronic Qualifiers: Lower urinary tract symptom presence: symptoms present Plan to address problem: Flomax to continue (5) DVT prophylaxis Current Visit: Yes Status: Acute Plan to address problem: Heparin
[2017-09-22] MEDS: ZESTRIL PO SCH (09:48)
[2017-09-22] MEDS: FLOMAX PO SCH (09:48)
[2017-09-22] MEDS: HALFPRIN EC PO SCH (09:48)
[2017-09-22] MEDS: TOPROL XL PO SCH (09:48)
[2017-09-22] MEDS: SODIUM CHLORIDE FLUSH SYRINGE 10 ML IV SCH ×2 (09:49→23:13)
[2017-09-22] MEDS ORDERED: SODIUM CHLORIDE FLUSH SYRINGE 10 ML IV SCH (10:00)
--- NOTE | 2017-09-22 13:34 | Event Note ---
Date: 09/22/17 76-year-old male admitted for generalized weakness, fever, dysuria. Patient has bilateral epididimitis and patient started with zosyn. Urology consulted by Dr. Romo. Patient was seen and evaluated this morning, labs and imagings were reviewed. Continue management per H&P.
[2017-09-22] MEDS: TYLENOL PO PRN (16:43)
[2017-09-23] MEDS: ZOSYN/NS 3.375GM/50ML 3.375 GM/50 ML BAG IV SCH ×4 (05:06→23:13)
[2017-09-23 05:30] LABS: Basophils % (Auto) 0.4 % (0.0-1.8); Eosinophils % (Auto) 0.1 % (0.0-4.3); Hematocrit 38.5 % (35.5-45.6); Hemoglobin 12.6 gm/dl (11.8-15.2); Lymphocytes # (Auto) 0.8 K/mm3 (1.2-5.4); Lymphocytes % (Auto) 11.1 % (13.4-35.0); Mean Corpuscular HGB Conc 33 % (32-34); Mean Corpuscular Hemoglobin 28 pg (28-32); Mean Corpuscular Volume 87 fl (84-94); Monocytes # (Auto) 0.7 K/mm3 (0.0-0.8); Monocytes % (Auto) 10.2 % (0.0-7.3); Platelet Count 192 K/mm3 (140-440); Red Blood Count 4.45 M/mm3 (3.65-5.03)
[2017-09-23 05:51] LABS: Calcium 8.6 mg/dL (8.4-10.2)
--- NOTE | 2017-09-23 08:05 | Consultation ---
History of Present Illness - Reason for Consult Consult date: 09/23/17 - History of Present Illness The patient is a 76-year-old male presenting with a chief complaint of fever and weakness. The patient states he had a renal stent removed 09/17/[address] Albarran. The patient states the following evening he feels as though he had a subjective fever. 09/19 he states he began to feel weakness and off balance. The patient states he started developing bilateral testicular pain with the left greater than the right. The patient also states he developed dysuria at that time. 09/20 the patient reported a temperature of 101.3F. Today the patient stated his weakness worsened. The patient states after he went to the bathroom he felt so weak he had difficulty getting back to his bedroom. The patient finally made to his bed and his found him hanging off the side of the secondary to his profound weakness. At this time EMS was called. In the ED the patient received IV fluids and states he feels much improved the patient admitted to some nausea earlier but denies vomiting. The patient states he had lower abdominal pain which began 09/19 as well CTAP - bph, small stones in bladder & both kidneys - no hydronephrosis scrotal us - inflamed epidydmis bilat A/P no surgical intervention needed home with cipro, flomax, norco brochure given home when stable Medications and Allergies Allergies Allergy/AdvReac Type Severity Reaction Status Date / Time cefazolin sodium [From [facility]] Allergy Itching Verified 08/15/17 17:09 Home Medications Medication Instructions Recorded Confirmed Last Taken Type Aspirin [Aspir-Low] 81 mg PO DAILY 08/15/17 09/21/17 09/09/17 History 10mg Benazepril (Nf) 20 mg PO DAILY 09/21/17 09/21/17 Unknown History Ciprofloxacin HCl [Cipro] 500 mg PO BID 09/21/17 09/21/17 Unknown History Ibuprofen 200 mg PO Q6H PRN 09/21/17 09/21/17 Unknown History Nebivolol HCl [Bystolic] 10 mg PO DAILY 09/21/17 09/21/17 Unknown History Oxycodone HCl/Acetaminophen 1 each PO Q4H PRN 09/21/17 09/21/17 Unknown History [Percocet 7.5/325 mg] Tamsulosin [Flomax] 0.4 mg PO QDAY 09/21/17 09/21/17 Unknown History Active Meds: Active Medications Acetaminophen (Tylenol) 650 mg PO Q4H PRN PRN Reason: Pain MILD(1-3)/Fever >100.5/PABLO Last Admin: 09/22/17 16:43 Dose: 650 mg Aspirin (Halfprin Ec) 81 mg PO DAILY [facility] Last Admin: 09/22/17 09:48 Dose: 81 mg Piperacillin Sod/Tazobactam Sod (Zosyn/Ns 3.375gm/50ml) 3.375 gm in 50 mls @ 100 mls/hr IV Q6HR [facility] Last Admin: 09/23/17 05:06 Dose: 100 mls/hr Sodium Chloride (Nacl 0.9% 1000 Ml) 1,000 mls @ 75 mls/hr IV DIRECT [facility] Lisinopril (Zestril) 20 mg PO QDAY [facility] Last Admin: 09/22/17 09:48 Dose: 20 mg Metoprolol Succinate (Toprol Xl) 100 mg PO QDAY [facility] Last Admin: 09/22/17 09:48 Dose: 100 mg Morphine Sulfate (Morphine) 2 mg IV Q4H PRN PRN Reason: Pain, Moderate (4-6) Ondansetron HCl (Zofran) 4 mg IV Q8H PRN PRN Reason: Nausea And Vomiting Oxycodone HCl (Roxicodone) 2.5 mg PO Q4H PRN PRN Reason: Pain, Moderate (4-6) Oxycodone/Acetaminophen (Percocet 5/325) 1 tab PO Q4H PRN PRN Reason: Pain, Moderate (4-6) Last Admin: 09/22/17 09:49 Dose: 1 tab Sodium Chloride (Sodium Chloride Flush Syringe 10 Ml) 10 ml IV PRN PRN PRN Reason: LINE FLUSH Sodium Chloride (Sodium Chloride Flush Syringe 10 Ml) 10 ml IV BID [facility] Last Admin: 09/22/17 23:13 Dose: 10 ml Tamsulosin HCl (Flomax) 0.4 mg PO QDAY [facility] Last Admin: 09/22/17 09:48 Dose: 0.4 mg Zolpidem Tartrate (Ambien) 5 mg PO QHS PRN PRN Reason: Insomnia Exam - Constitutional Vitals: Temp Pulse Resp BP Pulse Ox 100.2 F H 77 18 142/62 98 09/22/17 13:27 09/22/17 13:27 09/22/17 13:27 09/22/17 13:27 09/22/17 22:00 Results - Labs CBC & Chem 7: 09/23/17 04:38 09/23/17 04:38 Labs: Abnormal lab results 09/22/17 09/22/17 09/23/17 Range/Units 08:29 11:24 04:38 Lymph % (Auto) 11.1 L (13.4-35.0) % [place] % (Auto) 10.2 H (0.0-7.3) % Lymph # 0.8 L (1.2-5.4) K/mm3 Seg Neutrophils % 78.2 H (40.0-70.0) % Sodium (137-145) mmol/L Carbon Dioxide (22-30) mmol/L Creatinine (0.8-1.5) mg/dL POC Glucose 133 H 112 H (70-105) 09/23/17 Range/Units 04:38 Lymph % (Auto) (13.4-35.0) % [place] % (Auto) (0.0-7.3) % Lymph # (1.2-5.4) K/mm3 Seg Neutrophils % (40.0-70.0) % Sodium 134 L (137-145) mmol/L Carbon Dioxide 18 L (22-30) mmol/L Creatinine 2.0 H (0.8-1.5) mg/dL POC Glucose (70-105)
--- NOTE | 2017-09-23 09:59 | Progress Note ---
Assessment and Plan Assessment and plan: Bilateral epididymitis Continue IV antibiotics Urology input appreciated- no surgical intervention needed, home with cipro, flomax, norco UTI (urinary tract infection) Urine culture, continue IV antibiotics Hypertension Cont antihypertensives BPH (benign prostatic hyperplasia) Flomax to continue DVT prophylaxis SCDs History Interval history: Patient seen and examined. Denies chest pain, shortness of breath, nausea vomiting. Still complains of scrotal discomfort, fever overnight and today. Labs and nursing notes reviewed. Hospitalist Physical - Physical exam Narrative exam: General appearance: Present: no acute distress, well-nourished - EENT Eyes: Present: PERRL, EOM intact ENT: hearing intact, clear oral mucosa - Neck Present: supple, normal ROM - Respiratory Respiratory effort: normal Respiratory: bilateral: CTA - Cardiovascular Rhythm: regular Heart Sounds: Present: S1 & S2 - Extremities Extremities: no ischemia, No edema - Abdominal General gastrointestinal: soft, non-tender, non-distended - Integumentary Integumentary: Present: clear, warm, dry - Psychiatric Psychiatric: appropriate mood/affect, intact judgment & insight, cooperative - Neurologic Neurologic: CNII-XII intact, moves all extremities - Constitutional Vitals: Temp Pulse Resp BP Pulse Ox 101.4 F H 73 20 139/72 98 09/23/17 07:47 09/23/17 07:47 09/23/17 07:47 09/23/17 07:47 09/23/17 07:47 Results - Labs CBC & Chem 7: 09/23/17 04:38 09/23/17 04:38 Labs: Laboratory Last Values WBC 7.2 K/mm3 (4.5-11.0) 09/23/17 04:38 RBC 4.45 M/mm3 (3.65-5.03) 09/23/17 04:38 Hgb 12.6 gm/dl (11.8-15.2) 09/23/17 04:38 Hct 38.5 % (35.5-45.6) 09/23/17 04:38 MCV 87 fl (84-94) 09/23/17 04:38 MCH 28 pg (28-32) 09/23/17 04:38 MCHC 33 % (32-34) 09/23/17 04:38 RDW 15.0 % (13.2-15.2) 09/23/17 04:38 Plt Count 192 K/mm3 (140-440) 09/23/17 04:38 Lymph % (Auto) 11.1 % (13.4-35.0) L 09/23/17 04:38 [place] % (Auto) 10.2 % (0.0-7.3) H 09/23/17 04:38 Eos % (Auto) 0.1 % (0.0-4.3) 09/23/17 04:38 Baso % (Auto) 0.4 % (0.0-1.8) 09/23/17 04:38 Lymph # 0.8 K/mm3 (1.2-5.4) L 09/23/17 04:38 [place] # 0.7 K/mm3 (0.0-0.8) 09/23/17 04:38 Eos # 0.0 K/mm3 (0.0-0.4) 09/23/17 04:38 Baso # 0.0 K/mm3 (0.0-0.1) 09/23/17 04:38 Add Manual Diff Complete 09/21/17 22:03 Total Counted 100 09/21/17 22:03 Seg Neutrophils % 78.2 % (40.0-70.0) H 09/23/17 04:38 Seg Neuts % (Manual) 90.0 % (40.0-70.0) H 09/21/17 22:03 Band Neutrophils % 5.0 % 09/21/17 22:03 Lymphocytes % (Manual) 3.0 % (13.4-35.0) L 09/21/17 22:03 Reactive Lymphs % (Man) 0 % 09/21/17 22:03 Monocytes % (Manual) 2.0 % (0.0-7.3) 09/21/17 22:03 Eosinophils % (Manual) 0 % (0.0-4.3) 09/21/17 22:03 Basophils % (Manual) 0 % (0.0-1.8) 09/21/17 22:03 Metamyelocytes % 0 % 09/21/17 22:03 Myelocytes % 0 % 09/21/17 22:03 Promyelocytes % 0 % 09/21/17 22:03 Blast Cells % 0 % 09/21/17 22:03 Nucleated RBC % Not Reportable 09/21/17 22:03 Seg Neutrophils # 5.6 K/mm3 (1.8-7.7) 09/23/17 04:38 Seg Neutrophils # Man 13.5 K/mm3 (1.8-7.7) H 09/21/17 22:03 Band Neutrophils # 0.8 K/mm3 09/21/17 22:03 Lymphocytes # (Manual) 0.5 K/mm3 (1.2-5.4) L 09/21/17 22:03 Abs React Lymphs (Man) 0.0 K/mm3 09/21/17 22:03 Monocytes # (Manual) 0.3 K/mm3 (0.0-0.8) 09/21/17 22:03 Eosinophils # (Manual) 0.0 K/mm3 (0.0-0.4) 09/21/17 22:03 Basophils # (Manual) 0.0 K/mm3 (0.0-0.1) 09/21/17 22:03 Metamyelocytes # 0.0 K/mm3 09/21/17 22:03 Myelocytes # 0.0 K/mm3 09/21/17 22:03 Promyelocytes # 0.0 K/mm3 09/21/17 22:03 Blast Cells # 0.0 K/mm3 09/21/17 22:03 WBC Morphology Not Reportable 09/21/17 22:03 Hypersegmented Neuts Not Reportable 09/21/17 22:03 Hyposegmented Neuts Not Reportable 09/21/17 22:03 Hypogranular Neuts Not Reportable 09/21/17 22:03 Smudge Cells Not Reportable 09/21/17 22:03 Toxic Granulation Not Reportable 09/21/17 22:03 Toxic Vacuolation Not Reportable 09/21/17 22:03 Dohle Bodies Not Reportable 09/21/17 22:03 Pelger-Huet Anomaly Not Reportable 09/21/17 22:03 Michelle Rods Not Reportable 09/21/17 22:03 Platelet Estimate Consistent w auto 09/21/17 22:03 Clumped Platelets Not Reportable 09/21/17 22:03 Plt Clumps, EDTA Not Reportable 09/21/17 22:03 Large Platelets Not Reportable 09/21/17 22:03 Giant Platelets Not Reportable 09/21/17 22:03 Platelet Satelliting Not Reportable 09/21/17 22:03 Plt Morphology Comment Not Reportable 09/21/17 22:03 RBC Morphology Normal 09/21/17 22:03 Dimorphic RBCs Not Reportable 09/21/17 22:03 Polychromasia Not Reportable 09/21/17 22:03 Hypochromasia Not Reportable 09/21/17 22:03 Poikilocytosis Not Reportable 09/21/17 22:03 Anisocytosis Not Reportable 09/21/17 22:03 Microcytosis Not Reportable 09/21/17 22:03 Macrocytosis Not Reportable 09/21/17 22:03 Spherocytes Not Reportable 09/21/17 22:03 Pappenheimer Bodies Not Reportable 09/21/17 22:03 Sickle Cells Not Reportable 09/21/17 22:03 Target Cells Not Reportable 09/21/17 22:03 Tear Drop Cells Not Reportable 09/21/17 22:03 Ovalocytes Not Reportable 09/21/17 22:03 Helmet Cells Not Reportable 09/21/17 22:03 [place] Bodies Not Reportable 09/21/17 22:03 [place] Rings Not Reportable 09/21/17 22:03 [place] Cells Not Reportable 09/21/17 22:03 Bite Cells Not Reportable 09/21/17 22:03 Crenated Cell Not Reportable 09/21/17 22:03 Elliptocytes Not Reportable 09/21/17 22:03 Acanthocytes (Spur) Not Reportable 09/21/17 22:03 Rouleaux Not Reportable 09/21/17 22:03 Hemoglobin C Crystals Not Reportable 09/21/17 22:03 Schistocytes Not Reportable 09/21/17 22:03 Malaria parasites Not Reportable 09/21/17 22:03 Meng Bodies Not Reportable 09/21/17 22:03 Hem Pathologist Commnt No 09/21/17 22:03 PT 14.8 Sec. (12.2-14.9) 09/21/17 22:03 INR 1.10 (0.87-1.13) 09/21/17 22:03 VBG pH 7.377 (7.320-7.420) 09/21/17 22:03 Sodium 134 mmol/L (137-145) L 09/23/17 04:38 Potassium 3.9 mmol/L (3.6-5.0) 09/23/17 04:38 Chloride 101.1 mmol/L (98-107) 09/23/17 04:38 Carbon Dioxide 18 mmol/L (22-30) L 09/23/17 04:38 Anion Gap 19 mmol/L 09/23/17 04:38 BUN 20 mg/dL (9-20) 09/23/17 04:38 Creatinine 2.0 mg/dL (0.8-1.5) H 09/23/17 04:38 Estimated GFR 40 ml/min 09/23/17 04:38 BUN/Creatinine Ratio 10 % 09/23/17 04:38 Glucose 86 mg/dL (75-100) 09/23/17 04:38 POC Glucose 88 (70-105) 09/23/17 08:07 Hemoglobin A1c 5.7 % (4-6) 09/22/17 03:56 Lactic Acid 0.80 mmol/L (0.7-2.0) 09/22/17 01:22 Calcium 8.6 mg/dL (8.4-10.2) 09/23/17 04:38 Total Bilirubin 0.70 mg/dL (0.1-1.2) 09/21/17 22:03 AST 20 units/L (5-40) 09/21/17 22:03 ALT 12 units/L (7-56) 09/21/17 22:03 Alkaline Phosphatase 59 units/L (35-129) 09/21/17 22:03 Total Protein 7.3 g/dL (6.3-8.2) 09/21/17 22:03 Albumin 3.7 g/dL (3.9-5) L 09/21/17 22:03 Albumin/Globulin Ratio 1.0 % 09/21/17 22:03 Urine Color Yellow (Yellow) 09/21/17 23:33 Urine Turbidity Clear (Clear) 09/21/17 23:33 Urine pH 6.0 (5.0-7.0) 09/21/17 23:33 Ur Specific [place] 1.012 (1.003-1.030) 09/21/17 23:33 Urine Protein 30 mg/dl mg/dL (Negative) 09/21/17 23:33 Urine Glucose (UA) 50 mg/dL (Negative) 09/21/17 23: Urine Ketones Tr mg/dL (Negative) 09/21/17: Urine Blood Sm (Negative) 09/21/17 23: Urine Nitrite Neg (Negative) 09/21/17: Urine Bilirubin Neg (Negative) 09/21/17: Urine Urobilinogen < 2.0 mg/dL (<2.0) 09/21/17: Ur Leukocyte Esterase Sm (Negative) 09/21/17: Urine WBC (Auto) 15.0 /HPF (0.0-6.0) H 09/21/17: Urine RBC (Auto) 3.0 /HPF (0.0-6.0) 09/21/17 23:
[2017-09-23] MEDS: TOPROL XL PO SCH (10:41)
[2017-09-23] MEDS: ZESTRIL PO SCH (10:41)
[2017-09-23] MEDS: FLOMAX PO SCH (10:41)
[2017-09-23] MEDS: HALFPRIN EC PO SCH (10:41)
[2017-09-23] MEDS: SODIUM CHLORIDE FLUSH SYRINGE 10 ML IV SCH ×2 (10:42→23:13)
[2017-09-23] MEDS: TYLENOL PO PRN (11:09)
[2017-09-24] MEDS: TOPROL XL PO SCH (09:40)
[2017-09-24] MEDS: TYLENOL PO PRN (09:41)
[2017-09-24] MEDS: ZESTRIL PO SCH (09:41)
[2017-09-24] MEDS: FLOMAX PO SCH (09:41)
[2017-09-24] MEDS: HALFPRIN EC PO SCH (09:42)
[2017-09-24] MEDS: SODIUM CHLORIDE FLUSH SYRINGE 10 ML IV SCH ×2 (09:42→21:07)
[2017-09-24 10:39] LABS: Calcium 8.8 mg/dL (8.4-10.2)
[2017-09-24 11:37] LABS: Hematocrit 39.1 % (35.5-45.6); Hemoglobin 13.1 gm/dl (11.8-15.2); Mean Corpuscular HGB Conc 34 % (32-34); Mean Corpuscular Hemoglobin 29 pg (28-32); Mean Corpuscular Volume 86 fl (84-94); Platelet Count 195 K/mm3 (140-440); Red Blood Count 4.56 M/mm3 (3.65-5.03); Red Cell Distribution Width 15.5 % (13.2-15.2)
[2017-09-24] MEDS: ZOSYN/NS 3.375GM/50ML 3.375 GM/50 ML BAG IV SCH ×3 (12:07→18:09)
--- NOTE | 2017-09-24 13:03 | Query-Infection ---
Mitul Campos___Elaina Date:__09/24/5017 Wrap Turner/CDS:___Padmini Phone#:__[phone] Exercise your independent professional judgment when responding to this query. Questions asked do not imply a particular answer is desired or expected. We greatly appreciate your clarification on this issue. Clinical Documentation States: 76 Year old male was admitted on 09/21/2017 for fever and weakness. The Hospitalist (Elaina) progress note on 09/23/2017 states "Bilateral epididymitis Continue IV antibiotics Urology input appreciated- no surgical intervention needed, home with cipro, flomax, norco UTI (urinary tract infection) Urine culture, continue IV antibiotics." Clinical findings show: (please check applicable parameters) WBC (09/21): 15.0 Temp (09/21): 102.4 Infection, known /suspected, with some of the following indicators; Specify the infection: 3 General parameters [X] Fever (core temp >38.30C or 100.40F) [ ] Hypothermia (core temp <36C) [ ] Heart rate >90 bpm [ ] Tachypnea: >20 bpm or pCO2 < 32 mmHg [ ] Altered mental status [ ] Significant edema / +ve fluid balance (>20 ml/kg 24 h) [ ] Hyperglycemia (Bl. glucose >110 mg/dl) w/o diabetes Inflammatory parameters [X] Leukocytosis (white blood cell count >12,000/l) [ ] Leukopenia (white blood cell count <4,000/l) [ ] Bandemia (immature WBC > 10%) [ ] Leucocyte Left Shift [ ] Plasma procalcitonin>2 SD above the normal value Hemodynamic and tissue perfusion parameters [ ] Arterial hypotension(SBP <90 mmHg, MAP <70 mmHg,or a SBP drop >40 mmHg in adults) [ ] Hyperlactatemia (>3 mmol/l) [ ] Anion Gap (> 11mEG/l) [ ] Decreased capillary refill or mottling Organ dysfunction parameters [ ] Arterial hypoxemia (PaO2/FIO2 <300) [ ] Creatinine increase =0.5 mg/dl [ ] Acute oliguria (urine output <0.5 ml | kg |h or 45 mM/l for at least 2 hrs) [ ] Coagulation abnormalities (INR >1.5 or activated partial thromboplastin time >60 s) [ ] Ileus (absent suzanna wel sounds) [ ] Thrombocytopenia (platelet count <100,000/l) [ ] Hyperbilirubinemia (plasma total bilirubin >4 mg/dl) According to the clinical indications above, can Bacteremia be further specified? If so, please indicate below and in your Progress Notes and/ or Discharge Summary. Indicate if the condition was present on admission. PHYSICIAN RESPONSE: [x ] Sepsis [ ] Severe Sepsis [ ] Septic Shock [ ] Septicemia [ ] Sepsis now resolved [ ] SIRS due to non-infectious cause with organ dysfunction [ ] SIRS due to non-infectious cause without organ dysfunction [ ] Other: [ ] Comment/Explanation: Present on Admission: [x ] Yes (Y) [ ] Clinically undeterminable (W) [ ] No (N) [ ] Ruled Out Please also document response in your Progress Notes and/or Discharge Summary and indicate if the condition was present on admission Notes: SIRS/ SIRS WITH ORGAN DYSFUNCTION Systemic inflammatory response syndrome (SIRS) generally refers to the systemic response to trauma/de souza or other insult such as Acute Myocardial Infarction, Acute Pancreatitis, and Major Surgery with symptoms including fever, tachycardia , tachypnea, and leukocytosis (1). BACTEREMIA Presence of viable bacteria in the circulating blood (2). This term is reserved for patients that do not manifest above SIRS response. SEPTICEMIA Generally refers to a systemic disease associated with the presence of pathological microorganisms or toxins in the blood, which can include bacteria, viruses, fungi or other organisms (1). SEPSIS Generally refers to SIRS due infection (1). SEVERE SEPSIS Generally refers to sepsis associated with acute organ dysfunction (1). SEPTIC SHOCK Generally refers to circulatory failure associated with severe sepsis (2), and defined as hypotension or hypoperfusion despite adequate fluid resuscitation (1 hour) (3). REFERENCES: 1. [employer]/Society of Critical Care Medicine Consensus Conference. Definitions for sepsis and organ failure and guidelines for the use of innovative therapies in sepsis. Critical Care Med 1992;20:864 - 74. 2. Leonardo lopez MM, Silvia MP, Ramiro STEVE, Emery E, Matt D, Stephane D, [place] J, [place] SM , Wyatt JL, Tulio G; International Sepsis Definitions Conference. 2001 SCCM/ESICM/ACCP/ATS/SIS International Sepsis Definitions Conference. Intensive Care Med. 2002 Apr;29(4):530-8. Epub 2002Jul 31. Review. PubMed PMID:[id number] 3. ICD-9-CM Official Guidelines for Coding and Reporting 4. Medscape Drugs, Diseases and Procedures references 5. [employer] Textbook of Internal Medicine. 18th Edition MTDD
--- NOTE | 2017-09-24 13:13 | Query- Renal Failure ---
Mitul Campos___Elaina Date:__09/24/2017 Tur[employer] Electric Operator/CDS:___Padmini Phone#:___[phone] Exercise your independent professional judgment when responding to query. Questions asked do not imply a particular answer is desired or expected. We greatly appreciate your clarification on this issue. Clinical Documentation States: 76 Year old male was admitted on 09/21/2017 for fever and weakness. Clinical Findings Show: Creatinine 09/21 2.0 09/24 1.7 Please clarify if you mean: Acute Renal Failure with or due to: [ ] Tubular Necrosis [ ] Medullary Necrosis [ ] Vasomotor Nephropathy [ ] Shock Kidney [ ] Tubular Nephrosis [ ] Renal Tubular Stasis [ ] Cortical Necrosis [ ] Acute Renal Failure (unspecified) [ ] Lower Tubular Nephrosis [x] Other:___Acute on chronic renal failure, likely due to vasomotor nehropathy. Patient has CKD stage 3 [ ] Not Applicable Present on Admission: [x ] Yes (Y) [ ] Clinically undeterminable (W) [ ] No (N) Please also document response in your Progress Notes and/or Discharge Summary and indicate if the condition was present on admission. TANMAYD
--- NOTE | 2017-09-24 14:14 | Progress Note ---
Assessment and Plan Assessment and plan: 76-year-old -Surinamese male with past medical history significant for BPH presented to the emergency department with complaints of fever, generalized weakness and pain in the testes. Eipdidymitis, sepsis - Patient is on IV Zosyn, patient is still spiking fever - Continue with IV antibiotics and will discharge once patient is fever free for 24 hours - Urology consulted, and recommended no intervention at this time, on discharge give him Flomax, [place] and Cipro CKD - Patient's creatinine level is at baseline BPH - Continue Flomax DVT prophylaxis - Continue heparin Disposition - Continue inpatient care. History Interval history: Patient was seen and evaluated this morning, patient is complaining in the testes. Patient has been shooting fever overnight. Hospitalist Physical - Physical exam Narrative exam: Not in cardiopulmonary distress. The patient appeared well nourished and normally developed. Vital signs as documented. Head exam is unremarkable. No scleral icterus . Neck is without jugular venous distension, thyromegaly, or carotid bruits. Lungs are clear to auscultation. Cardiac exam reveals regular rate and Rhythm. First and second heart sounds normal. No murmurs, rubs or gallops. Abdominal exam reveals normal bowel sounds, no masses, no organomegaly and no aortic enlargement. Extremities are nonedematous and both femoral and pedal pulses are normal. Genitourinary system swollen & tender testes. HAIR OR BEAUTY SALON MANAGER: Alert and oriented 3. No focal weakness. - Constitutional Vitals: Temp Pulse Resp BP Pulse Ox 100.4 F H 68 20 157/77 98 09/24/17 08:19 09/24/17 09:40 09/24/17 10:00 09/24/17 09:40 09/24/17 10:00 General appearance: Present: no acute distress, well-nourished Results - Labs CBC & Chem 7: 09/24/17 11:14 09/24/17 09:53 Labs: Laboratory Last Values WBC 9.8 K/mm3 (4.5-11.0) 09/24/17 11:14 RBC 4.56 M/mm3 (3.65-5.03) 09/24/17 11:14 Hgb 13.1 gm/dl (11.8-15.2) 09/24/17 11:14 Hct 39.1 % (35.5-45.6) 09/24/17 11:14 MCV 86 fl (84-94) 09/24/17 11:14 MCH 29 pg (28-32) 09/24/17 11:14 MCHC 34 % (32-34) 09/24/17 11:14 RDW 15.5 % (13.2-15.2) H 09/24/17 11:14 Plt Count 195 K/mm3 (140-440) 09/24/17 11:14 Lymph % (Auto) [place] Supervisor 09/24/17 11:14 [place] % (Auto) [place] Supervisor 09/24/17 11:14 Eos % (Auto) [place] Supervisor 09/24/17 11:14 Baso % (Auto) [place] Supervisor 09/24/17 11:14 Lymph # [place] Supervisor 09/24/17 11:14 [place] # [place] Supervisor 09/24/17 11:14 Eos # [place] Supervisor 09/24/17 11:14 Baso # [place] Supervisor 09/24/17 11:14 Add Manual Diff Complete 09/21/17 22:03 Total Counted 100 09/21/17 22:03 Seg Neutrophils % [place] Supervisor 09/24/17 11:14 Seg Neuts % (Manual) 90.0 % (40.0-70.0) H 09/21/17 22:03 Band Neutrophils % 5.0 % 09/21/17 22:03 Lymphocytes % (Manual) 3.0 % (13.4-35.0) L 09/21/17 22:03 Reactive Lymphs % (Man) 0 % 09/21/17 22:03 Monocytes % (Manual) 2.0 % (0.0-7.3) 09/21/17 22:03 Eosinophils % (Manual) 0 % (0.0-4.3) 09/21/17 22:03 Basophils % (Manual) 0 % (0.0-1.8) 09/21/17 22:03 Metamyelocytes % 0 % 09/21/17 22:03 Myelocytes % 0 % 09/21/17 22:03 Promyelocytes % 0 % 09/21/17 22:03 Blast Cells % 0 % 09/21/17 22:03 Nucleated RBC % Not Reportable 09/21/17 22:03 Seg Neutrophils # [place] Supervisor 09/24/17 11:14 Seg Neutrophils # Man 13.5 K/mm3 (1.8-7.7) H 09/21/17 22:03 Band Neutrophils # 0.8 K/mm3 09/21/17 22:03 Lymphocytes # (Manual) 0.5 K/mm3 (1.2-5.4) L 09/21/17 22:03 Abs React Lymphs (Man) 0.0 K/mm3 09/21/17 22:03 Monocytes # (Manual) 0.3 K/mm3 (0.0-0.8) 09/21/17 22:03 Eosinophils # (Manual) 0.0 K/mm3 (0.0-0.4) 09/21/17 22:03 Basophils # (Manual) 0.0 K/mm3 (0.0-0.1) 09/21/17 22:03 Metamyelocytes # 0.0 K/mm3 09/21/17 22:03 Myelocytes # 0.0 K/mm3 09/21/17 22:03 Promyelocytes # 0.0 K/mm3 09/21/17 22:03 Blast Cells # 0.0 K/mm3 09/21/17 22:03 WBC Morphology Not Reportable 09/21/17 22:03 Hypersegmented Neuts Not Reportable 09/21/17 22:03 Hyposegmented Neuts Not Reportable 09/21/17 22:03 Hypogranular Neuts Not Reportable 09/21/17 22:03 Smudge Cells Not Reportable 09/21/17 22:03 Toxic Granulation Not Reportable 09/21/17 22:03 Toxic Vacuolation Not Reportable 09/21/17 22:03 Dohle Bodies Not Reportable 09/21/17 22:03 Pelger-Huet Anomaly Not Reportable 09/21/17 22:03 Michelle Rods Not Reportable 09/21/17 22:03 Platelet Estimate Consistent w auto 09/21/17 22:03 Clumped Platelets Not Reportable 09/21/17 22:03 Plt Clumps, EDTA Not Reportable 09/21/17 22:03 Large Platelets Not Reportable 09/21/17 22:03 Giant Platelets Not Reportable 09/21/17 22:03 Platelet Satelliting Not Reportable 09/21/17 22:03 Plt Morphology Comment Not Reportable 09/21/17 22:03 RBC Morphology Normal 09/21/17 22:03 Dimorphic RBCs Not Reportable 09/21/17 22:03 Polychromasia Not Reportable 09/21/17 22:03 Hypochromasia Not Reportable 09/21/17 22:03 Poikilocytosis Not Reportable 09/21/17 22:03 Anisocytosis Not Reportable 09/21/17 22:03 Microcytosis Not Reportable 09/21/17 22:03 Macrocytosis Not Reportable 09/21/17 22:03 Spherocytes Not Reportable 09/21/17 22:03 Pappenheimer Bodies Not Reportable 09/21/17 22:03 Sickle Cells Not Reportable 09/21/17 22:03 Target Cells Not Reportable 09/21/17 22:03 Tear Drop Cells Not Reportable 09/21/17 22:03 Ovalocytes Not Reportable 09/21/17 22:03 Helmet Cells Not Reportable 09/21/17 22:03 [place] Bodies Not Reportable 09/21/17 22:03 [place] Rings Not Reportable 09/21/17 22:03 [place] Cells Not Reportable 09/21/17 22:03 Bite Cells Not Reportable 09/21/17 22:03 Crenated Cell Not Reportable 09/21/17 22:03 Elliptocytes Not Reportable 09/21/17 22:03 Acanthocytes (Spur) Not Reportable 09/21/17 22:03 Rouleaux Not Reportable 09/21/17 22:03 Hemoglobin C Crystals Not Reportable 09/21/17 22:03 Schistocytes Not Reportable 09/21/17 22:03 Malaria parasites Not Reportable 09/21/17 22:03 Meng Bodies Not Reportable 09/21/17 22:03 Hem Pathologist Commnt No 09/21/17 22:03 PT 14.8 Sec. (12.2-14.9) 09/21/17 22:03 INR 1.10 (0.87-1.13) 09/21/17 22:03 VBG pH 7.377 (7.320-7.420) 09/21/17 22:03 Sodium 133 mmol/L (137-145) L 09/24/17 09:53 Potassium 3.8 mmol/L (3.6-5.0) 09/24/17 09:53 Chloride 100.3 mmol/L (98-107) 09/24/17 09:53 Carbon Dioxide 18 mmol/L (22-30) L 09/24/17 09:53 Anion Gap 19 mmol/L 09/24/17 09:53 BUN 18 mg/dL (9-20) 09/24/17 09:53 Creatinine 1.7 mg/dL (0.8-1.5) H 09/24/17 09:53 Estimated GFR 48 ml/min 09/24/17 09:53 BUN/Creatinine Ratio 11 % 09/24/17 09:53 Glucose 90 mg/dL (75-100) 09/24/17 09:53 POC Glucose 83 (70-105) 09/24/17 12:03 Hemoglobin A1c 5.7 % (4-6) 09/22/17 03:56 Lactic Acid 0.80 mmol/L (0.7-2.0) 09/22/17 01:22 Calcium 8.8 mg/dL (8.4-10.2) 09/24/17 09:53 Total Bilirubin 0.70 mg/dL (0.1-1.2) 09/21/17 22:03 AST 20 units/L (5-40) 09/21/17 22:03 ALT 12 units/L (7-56) 09/21/17 22:03 Alkaline Phosphatase 59 units/L (35-129) 09/21/17 22:03 Total Protein 7.3 g/dL (6.3-8.2) 09/21/17 22:03 Albumin 3.7 g/dL (3.9-5) L 09/21/17 22:03 Albumin/Globulin Ratio 1.0 % 09/21/17 22:03 Urine Color Yellow (Yellow) 09/21/17 23:33 Urine Turbidity Clear (Clear) 09/21/17 23:33 Urine pH 6.0 (5.0-7.0) 09/21/17 23:33 Ur Specific [place] 1.012 (1.003-1.030) 09/21/17 23:33 Urine Protein 30 mg/dl mg/dL (Negative) 09/21/17 23:33 Urine Glucose (UA) 50 mg/dL (Negative) 09/21/17 23:33 Urine Ketones Tr mg/dL (Negative) 09/21/17 23:33 Urine Blood Sm (Negative) 09/21/17 23:33 Urine Nitrite Neg (Negative) 09/21/17 23:33 Urine Bilirubin Neg (Negative) 09/21/17 23:33 Urine Urobilinogen < 2.0 mg/dL (<2.0) 09/21/17 23:33 Ur Leukocyte Esterase Sm (Negative) 09/21/17 23:33 Urine WBC (Auto) 15.0 /HPF (0.0-6.0) H 09/21/17 23:33 Urine RBC (Auto) 3.0 /HPF (0.0-6.0) 09/21/17 23:33
[2017-09-25] MEDS: ZOSYN/NS 3.375GM/50ML 3.375 GM/50 ML BAG IV SCH ×3 (00:31→11:17)
[2017-09-25] MEDS: ZESTRIL PO SCH (09:42)
[2017-09-25] MEDS: HALFPRIN EC PO SCH (09:43)
[2017-09-25] MEDS: SODIUM CHLORIDE FLUSH SYRINGE 10 ML IV SCH (09:44)
[2017-09-25] MEDS: TOPROL XL PO SCH (09:44)
[2017-09-25] MEDS: FLOMAX PO SCH (09:44)
--- NOTE | 2017-09-25 10:00 | Progress Note ---
Assessment and Plan Assessment and plan: 76-year-old -[place] male with past medical history significant for BPH presented to the emergency department with complaints of fever, generalized weakness and pain in the testes. Eipdidymitis, sepsis - Patient is on IV Zosyn, patient is still spiking fever - Continue with IV antibiotics and will discharge once patient is fever free for 24 hours - Urology consulted, and recommended no intervention at this time, on discharge give him Flomax, [place] and Cipro CKD - Patient's creatinine level is at baseline BPH - Continue Flomax DVT prophylaxis - Continue heparin Disposition - Continue inpatient care. Hospitalist Physical - Constitutional Vitals: Temp Pulse Resp BP Pulse Ox 98.5 F 55 L 20 138/74 97 09/25/17 07:05 09/25/17 09:44 09/25/17 07:05 09/25/17 09:44 09/25/17 07:05 General appearance: Present: no acute distress, well-nourished Results - Labs CBC & Chem 7: 09/24/17 11:14 09/24/17 09:53 Labs: Laboratory Last Values WBC 9.8 K/mm3 (4.5-11.0) 09/24/17 11:14 RBC 4.56 M/mm3 (3.65-5.03) 09/24/17 11:14 Hgb 13.1 gm/dl (11.8-15.2) 09/24/17 11:14 Hct 39.1 % (35.5-45.6) 09/24/17 11:14 MCV 86 fl (84-94) 09/24/17 11:14 MCH 29 pg (28-32) 09/24/17 11:14 MCHC 34 % (32-34) 09/24/17 11:14 RDW 15.5 % (13.2-15.2) H 09/24/17 11:14 Plt Count 195 K/mm3 (140-440) 09/24/17 11:14 Lymph % (Auto) Science Education Professor 09/24/17 11:14 [place] % (Auto) Science Education Professor 09/24/17 11:14 Eos % (Auto) Science Education Professor 09/24/17 11:14 Baso % (Auto) Science Education Professor 09/24/17 11:14 Lymph # Science Education Professor 09/24/17 11:14 [place] # Science Education Professor 09/24/17 11:14 Eos # Science Education Professor 09/24/17 11:14 Baso # Science Education Professor 09/24/17 11:14 Add Manual Diff Complete 09/21/17 22:03 Total Counted 100 09/21/17 22:03 Seg Neutrophils % Science Education Professor 09/24/17 11:14 Seg Neuts % (Manual) 90.0 % (40.0-70.0) H 09/21/17 22:03 Band Neutrophils % 5.0 % 09/21/17 22:03 Lymphocytes % (Manual) 3.0 % (13.4-35.0) L 09/21/17 22:03 Reactive Lymphs % (Man) 0 % 09/21/17 22:03 Monocytes % (Manual) 2.0 % (0.0-7.3) 09/21/17 22:03 Eosinophils % (Manual) 0 % (0.0-4.3) 09/21/17 22:03 Basophils % (Manual) 0 % (0.0-1.8) 09/21/17 22:03 Metamyelocytes % 0 % 09/21/17 22:03 Myelocytes % 0 % 09/21/17 22:03 Promyelocytes % 0 % 09/21/17 22:03 Blast Cells % 0 % 09/21/17 22:03 Nucleated RBC % Not Reportable 09/21/17 22:03 Seg Neutrophils # Science Education Professor 09/24/17 11:14 Seg Neutrophils # Man 13.5 K/mm3 (1.8-7.7) H 09/21/17 22:03 Band Neutrophils # 0.8 K/mm3 09/21/17 22:03 Lymphocytes # (Manual) 0.5 K/mm3 (1.2-5.4) L 09/21/17 22:03 Abs React Lymphs (Man) 0.0 K/mm3 09/21/17 22:03 Monocytes # (Manual) 0.3 K/mm3 (0.0-0.8) 09/21/17 22:03 Eosinophils # (Manual) 0.0 K/mm3 (0.0-0.4) 09/21/17 22:03 Basophils # (Manual) 0.0 K/mm3 (0.0-0.1) 09/21/17 22:03 Metamyelocytes # 0.0 K/mm3 09/21/17 22:03 Myelocytes # 0.0 K/mm3 09/21/17 22:03 Promyelocytes # 0.0 K/mm3 09/21/17 22:03 Blast Cells # 0.0 K/mm3 09/21/17 22:03 WBC Morphology Not Reportable 09/21/17 22:03 Hypersegmented Neuts Not Reportable 09/21/17 22:03 Hyposegmented Neuts Not Reportable 09/21/17 22:03 Hypogranular Neuts Not Reportable 09/21/17 22:03 Smudge Cells Not Reportable 09/21/17 22:03 Toxic Granulation Not Reportable 09/21/17 22:03 Toxic Vacuolation Not Reportable 09/21/17 22:03 Dohle Bodies Not Reportable 09/21/17 22:03 Pelger-Huet Anomaly Not Reportable 09/21/17 22:03 Michelle Rods Not Reportable 09/21/17 22:03 Platelet Estimate Consistent w auto 09/21/17 22:03 Clumped Platelets Not Reportable 09/21/17 22:03 Plt Clumps, EDTA Not Reportable 09/21/17 22:03 Large Platelets Not Reportable 09/21/17 22:03 Giant Platelets Not Reportable 09/21/17 22:03 Platelet Satelliting Not Reportable 09/21/17 22:03 Plt Morphology Comment Not Reportable 09/21/17 22:03 RBC Morphology Normal 09/21/17 22:03 Dimorphic RBCs Not Reportable 09/21/17 22:03 Polychromasia Not Reportable 09/21/17 22:03 Hypochromasia Not Reportable 09/21/17 22:03 Poikilocytosis Not Reportable 09/21/17 22:03 Anisocytosis Not Reportable 09/21/17 22:03 Microcytosis Not Reportable 09/21/17 22:03 Macrocytosis Not Reportable 09/21/17 22:03 Spherocytes Not Reportable 09/21/17 22:03 Pappenheimer Bodies Not Reportable 09/21/17 22:03 Sickle Cells Not Reportable 09/21/17 22:03 Target Cells Not Reportable 09/21/17 22:03 Tear Drop Cells Not Reportable 09/21/17 22:03 Ovalocytes Not Reportable 09/21/17 22:03 Helmet Cells Not Reportable 09/21/17 22:03 [place] Bodies Not Reportable 09/21/17 22:03 Alto Rings Not Reportable 09/21/17 22:03 Armaan Cells Not Reportable 09/21/17 22:03 Bite Cells Not Reportable 09/21/17 22:03 Crenated Cell Not Reportable 09/21/17 22:03 Elliptocytes Not Reportable 09/21/17 22:03 Acanthocytes (Spur) Not Reportable 09/21/17 22:03 Rouleaux Not Reportable 09/21/17 22:03 Hemoglobin C Crystals Not Reportable 09/21/17 22:03 Schistocytes Not Reportable 09/21/17 22:03 Malaria parasites Not Reportable 09/21/17 22:03 Meng Bodies Not Reportable 09/21/17 22:03 Hem Pathologist Commnt No 09/21/17 22:03 PT 14.8 Sec. (12.2-14.9) 09/21/17 22:03 INR 1.10 (0.87-1.13) 09/21/17 22:03 VBG pH 7.377 (7.320-7.420) 09/21/17 22:03 Sodium 133 mmol/L (137-145) L 09/24/17 09:53 Potassium 3.8 mmol/L (3.6-5.0) 09/24/17 09:53 Chloride 100.3 mmol/L (98-107) 09/24/17 09:53 Carbon Dioxide 18 mmol/L (22-30) L 09/24/17 09:53 Anion Gap 19 mmol/L 09/24/17 09:53 BUN 18 mg/dL (9-20) 09/24/17 09:53 Creatinine 1.7 mg/dL (0.8-1.5) H 09/24/17 09:53 Estimated GFR 48 ml/min 09/24/17 09:53 BUN/Creatinine Ratio 11 % 09/24/17 09:53 Glucose 90 mg/dL (75-100) 09/24/17 09:53 POC Glucose 111 (70-105) H 09/25/17 07:16 Hemoglobin A1c 5.7 % (4-6) 09/22/17 03:56 Lactic Acid 0.80 mmol/L (0.7-2.0) 09/22/17 01:22 Calcium 8.8 mg/dL (8.4-10.2) 09/24/17 09:53 Total Bilirubin 0.70 mg/dL (0.1-1.2) 09/21/17 22:03 AST 20 units/L (5-40) 09/21/17 22:03 ALT 12 units/L (7-56) 09/21/17 22:03 Alkaline Phosphatase 59 units/L (35-129) 09/21/17 22:03 Total Protein 7.3 g/dL (6.3-8.2) 09/21/17 22:03 Albumin 3.7 g/dL (3.9-5) L 09/21/17 22:03 Albumin/Globulin Ratio 1.0 % 09/21/17 22:03 Urine Color Yellow (Yellow) 09/21/17 23:33 Urine Turbidity Clear (Clear) 09/21/17 23:33 Urine pH 6.0 (5.0-7.0) 09/21/17 23:33 Ur Specific [place] 1.012 (1.003-1.030) 09/21/17 23:33 Urine Protein 30 mg/dl mg/dL (Negative) 09/21/17 23:33 Urine Glucose (UA) 50 mg/dL (Negative) 09/21/17 23:33 Urine Ketones Tr mg/dL (Negative) 09/21/17 23:33 Urine Blood Sm (Negative) 09/21/17 23:33 Urine Nitrite Neg (Negative) 09/21/17 23:33 Urine Bilirubin Neg (Negative) 09/21/17 23:33 Urine Urobilinogen < 2.0 mg/dL (<2.0) 09/21/17 23:33 Ur Leukocyte Esterase Sm (Negative) 09/21/17 23:33 Urine WBC (Auto) 15.0 /HPF (0.0-6.0) H 09/21/17 23:33 Urine RBC (Auto) 3.0 /HPF (0.0-6.0) 09/21/17 23:33
--- NOTE | 2017-09-25 12:45 | Discharge Summary ---
Providers - Providers Date of Admission: 09/22/17 03:55 Date of discharge: 09/25/17 Attending physician: SIMON AUSTIN MD 09/22/17 03:55 Consult to Physician [CONS] Routine Comment: left mess. /maria de jesus Consulting Provider: SOFIE BIGGS Physician Instructions: Reason For Exam: Epidydimitis Primary care physician: [employer] Hospitalization Condition: Good Pertinent studies: CT abdomen and pelvis showed Moderate enlargement of the prostate gland. There is mild haziness of the fat surrounding the prostate gland which may be on a chronic basis. Mild prostatitis is not excluded. Correlation with PSA suggested. Multiple bilateral nonobstructive renal calculi. Chronic appearing atrophy of the right kidney. There is a 3 millimeter calculus within the urinary bladder. No evidence of recent passage of stone. No abnormal dilatation or fat stranding along the course of the bilateral ureters. Hospital course: 76-year-old -[place] male with past medical history significant for BPH presented to the emergency department with complaints of fever, generalized weakness and pain in the testes. Testicular ultrasound resulted with findings concerning for epididymitis. Urology was consulted and patient was initiated on IV antibiotics. No surgical intervention was recommended at this time. Urology. Patient will continue Cipro, Flomax and [place] for pain. Patient's creatinine was mildly elevated and returned to baseline with IV hydration. Patient does have a history of chronic kidney disease. Patient was clinically and hemodynamically stable for discharge and will follow up with primary care provider within one week of discharge and urologist within 2 weeks of discharge. Discharge diagnoses Eipdidymitis, sepsis CKD BPH DVT prophylaxis Disposition Disposition: TO HOME OR SELFCARE Time spent for discharge: 31 minutes Core Measure Documentation - Palliative Care Palliative Care/ Comfort Measures: Not Applicable - Core Measures Any of the following diagnoses?: none Exam - Physical Exam Narrative exam: General appearance: Present: no acute distress, well-nourished - EENT Eyes: Present: PERRL, EOM intact ENT: hearing intact, clear oral mucosa - Neck Present: supple, normal ROM - Respiratory Respiratory effort: normal Respiratory: bilateral: CTA - Cardiovascular Rhythm: regular Heart Sounds: Present: S1 & S2 - Extremities Extremities: no ischemia, No edema - Abdominal General gastrointestinal: soft, non-tender, non-distended - Integumentary Integumentary: Present: clear, warm, dry - Psychiatric Psychiatric: appropriate mood/affect, intact judgment & insight, cooperative - Neurologic Neurologic: CNII-XII intact, moves all extremities - Constitutional Vitals: Temp Pulse Resp BP Pulse Ox 98.5 F 56 L 16 138/74 97 09/25/17 07:05 09/25/17 10:00 09/25/17 10:00 09/25/17 09:44 09/25/17 07:05 Plan Follow up with: PATI MOCK MD [Primary Care Provider] - 3-5 Days SOFIE BIGGS MD [Staff Physician] - 14 Days Forms: STI Treatment and Prevention Prescriptions: Ciprofloxacin HCl [Cipro] 500 mg PO BID #20 tablet
[2017-09-25 14:00] VITALS: BP 116/73
== END 2017-09-25 16:35 | disposition home or self-care (01) | DRG 871 ==
LOC: ED 21:19 → 2B-ACE 09-22 03:55
PROVIDERS: ADMIT Internal Medicine; ATTEND Internal Medicine
DX: A41.9 Sepsis, unspecified organism (principal); N17.0 Acute kidney failure with tubular necrosis; N39.0 Urinary tract infection, site not specified; N45.1 Epididymitis; N40.0 Benign prostatic hyperplasia without lower urinary tract symptoms; N18.3 Chronic kidney disease, stage 3 (moderate); I12.9 Hypertensive chronic kidney disease with stage 1 through stage 4 chronic kidney disease, or unspecified chronic kidney disease; E86.0 Dehydration; E11.22 Type 2 diabetes mellitus with diabetic chronic kidney disease; Z95.0 Presence of cardiac pacemaker; Z87.442 Personal history of urinary calculi; Z79.82 Long term (current) use of aspirin; Z79.899 Other long term (current) drug therapy; N20.9 Urinary calculus, unspecified
CPT/HCPCS: 36415; 71045; 74176; 80048; 80053; 81001; 82140; 82805; 82962; 83036; 85007; 85025; 85610; 87040; 87086; 93005; 93010; 93975; J1956; J2543; J7030; J7040

== ENCOUNTER 2018-07-22 09:52 | Outpatient (CLI) | payer MEDICARE, OTHER ==
[2018-07-22 10:53] LABS: Basophils % (Auto) 0.9 % (0.0-1.8); Eosinophils # (Auto) 0.2 K/mm3 (0.0-0.4); Eosinophils % (Auto) 3.3 % (0.0-4.3); Hematocrit 42.2 % (35.5-45.6); Hemoglobin 14.2 gm/dl (11.8-15.2); Lymphocytes # (Auto) 1.8 K/mm3 (1.2-5.4); Lymphocytes % (Auto) 35.4 % (13.4-35.0); Mean Corpuscular HGB Conc 34 % (32-34); Mean Corpuscular Volume 87 fl (84-94); Monocytes # (Auto) 0.4 K/mm3 (0.0-0.8); Monocytes % (Auto) 7.2 % (0.0-7.3); Platelet Count 209 K/mm3 (140-440); Red Blood Count 4.88 M/mm3 (3.65-5.03); Red Cell Distribution Width 15.1 % (13.2-15.2)
[2018-07-22 11:26] LABS: Albumin 4.5 g/dL (3.9-5); Calcium 9.6 mg/dL (8.4-10.2); Chol/HDL Ratio 4.13 %
== END 2018-07-22 09:53 | disposition home or self-care (01) ==
LOC: LAB 09:52
PROVIDERS: ATTEND Internal Medicine
DX: Z00.01 Encounter for general adult medical examination with abnormal findings (principal); E11.9 Type 2 diabetes mellitus without complications; I10 Essential (primary) hypertension; I65.29 Occlusion and stenosis of unspecified carotid artery; Z87.891 Personal history of nicotine dependence
CPT/HCPCS: 36415; 80053; 80061; 82306; 82607; 83036; 84443; 85025

== ENCOUNTER 2018-10-27 09:09 | Outpatient (CLI) | payer MEDICARE, OTHER ==
[2018-10-27 11:08] LABS: Chol/HDL Ratio 4.44 %
== END 2018-10-27 09:10 | disposition home or self-care (01) ==
LOC: LAB 09:09
PROVIDERS: ATTEND Internal Medicine
DX: E11.9 Type 2 diabetes mellitus without complications (principal); E66.01 Morbid (severe) obesity due to excess calories; I10 Essential (primary) hypertension
CPT/HCPCS: 36415; 80061; 83036

== ENCOUNTER 2021-06-27 07:29 | Outpatient (CLI) | payer MEDICARE, OTHER ==
--- NOTE | 2021-06-27 08:49 | Cat Scan Report ---
CT ABDOMEN AND PELVIS WITHOUT CONTRAST HISTORY: C61 MALIGNANT NEOPLASM OF PROSTATE COMPARISON: 07/22/2017 TECHNIQUE: Axial CT images were obtained through the abdomen and pelvis without IV contrast. Sagittal and coronal reformatted images. All CT scans at this location are performed using CT dose reduction for ALARA by means of automated exposure control. FINDINGS: CT ABDOMEN: Lung Bases: Clear. Liver: No significant abnormality. Stable 1 cm hypodensity in the left hepatic lobe which probably re presents a cyst or hemangioma. Biliary: No significant abnormality. Spleen: No significant abnormality. Unenlarged. Pancreas: No significant abnormality. Adrenals: No significant abnormality. Kidneys: The right kidney is atrophic measuring 7 cm. Left kidney is normal size. Multiple bilateral renal calyceal stones and scattered renal cysts appear stable in size and number. There is a new 4.6 mm calculus in the mid right ureter on image 91, series 2. No hydronephrosis is appreciated. Lymphatics: No pathologic adenopathy is detected. Vasculature: Stable mild atherosclerotic disease in the abdominal aorta and iliac arteries. No aneury sm. Bowel/Peritoneum: Stable diverticulosis of the colon. No evidence for bowel obstruction or focal infl ammation. No free fluid, fluid collection or free air. CT PELVIS: : The prostate gland remains enlarged measuring 6 cm in diameter. There are a few tiny stones in th e right side of the bladder. No bladder wall thickening or mass. Osseous Structures: No suspicious bony lesion or fracture is detected. Stable thoracolumbar spondylos is. Additional Findings: None IMPRESSION: No evidence for metastatic disease to the abdomen or pelvis. Atrophic right kidney. Bilateral renal stones and cysts which appear stable. There is a new 4.6 mm mi d right ureteral calculus without evidence for obstruction. Tiny bladder stones. Prostatomegaly. Diverticulosis of the colon. Signer Name: Casper Clark Jr, MD Signed: 06/27/2021 8:44 AM Workstation Name: [id number]
--- NOTE | 2021-06-27 12:30 | Nuclear Medicine Report ---
NUCLEAR MEDICINE BONE SCAN, WHOLE BODY INDICATION: C61. Prostate cancer TECHNIQUE: 26.3 mCi of Tc-99m MDP were injected IV. Whole body images were obtained. COMPARISON: CT abdomen pelvis without contrast performed the same day. No previous bone scan at this facility.. FINDINGS: Skeletal Structures: Fairly symmetric, likely degenerative uptake is present involving the shoulders , sternoclavicular joints, spine, knees and feet. Skeletal Lesions: None. Soft Tissues: Normal. Kidneys: Normal, symmetric activity. Additional Findings: None. IMPRESSION: No evidence for osseous metastasis. Degenerative findings as noted above. Signer Name: Casper Clark Jr, MD Signed: 06/27/2021 12:25 PM Workstation Name: [id number]
== END 2021-06-27 07:30 | disposition home or self-care (01) ==
LOC: NM 07:29
PROVIDERS: ATTEND Urology
DX: C61 Malignant neoplasm of prostate (principal); N26.1 Atrophy of kidney (terminal); N28.1 Cyst of kidney, acquired; N32.89 Other specified disorders of bladder; N20.2 Calculus of kidney with calculus of ureter; I70.0 Atherosclerosis of aorta; K57.30 Diverticulosis of large intestine without perforation or abscess without bleeding; M43.15 Spondylolisthesis, thoracolumbar region
CPT/HCPCS: 74176; 78306; A9503